=== PATIENT | male | born 1970 | race Caucasian/White ===

== ENCOUNTER 2017-07-03 14:55 | Emergency (ER) | payer MEDICARE ==
--- NOTE | 2017-07-03 16:04 | ULT ---
VENOUS DUPLEX SONOGRAM OF RIGHT LOWER EXTREMITY: 07/03/17 HISTORY: Right leg pain and edema. FINDINGS: The right common femoral vein and greater saphenous junction were evaluated along with the femoral, d eep femoral, popliteal, and posterior tibial vein. There is color and spectral doppler flow, compress ion, and augmentation. IMPRESSION: No sonographic evidence of DVT within the right lower extremity. POS: [facility]
[2017-07-03] MEDS ORDERED: Morphine 4 MG/ML VIAL ONE (21:11)
== END 2017-07-03 22:16 ==
LOC: ERS 14:55
DX: S92.001A Unspecified fracture of right calcaneus, initial encounter for closed fracture (principal); E78.5 Hyperlipidemia, unspecified; I10 Essential (primary) hypertension; G40.909 Epilepsy, unspecified, not intractable, without status epilepticus; F17.210 Nicotine dependence, cigarettes, uncomplicated; Z71.6 Tobacco abuse counseling; W13.2XXA Fall from, out of or through roof, initial encounter
CPT/HCPCS: 29515; 96374; 99406; J2270

== ENCOUNTER 2017-11-29 04:41 | Inpatient (IN) | payer MEDICARE ==
[2017-11-29 05:53] LABS: Hemoglobin 15.8 g/dL (14.0-18.0); Mean Corpuscular Hemoglobin 31.6 pg (27.0-31.0); Mean Corpuscular Volume 90.5 fL (78.0-98.0)
[2017-11-29 06:03] LABS: Acetaminophen Less than 6.0 mcg/mL (10.0-30.0); Alcohol Less than 10 mg/dL (Less than 10); Salicylate Less than 8.0 mg/dL (15.0-30.0)
[2017-11-29 06:13] LABS: ALT (SGPT) 12 U/L (8-55); AST (SGOT) 22 U/L (5-34); Albumin 4.5 g/dL (3.5-5.0); Alcohol Less than 10 mg/dL (Less than 10); Alkaline Phosphatase 77 U/L (40-150); Anion Gap 20 mmol/L (10-20); BUN (Urea Nitrogen) 51 mg/dL (8.9-20.6); Bilirubin, Total 1.2 mg/dL (0.2-1.2); Calc. Creatinine Clearance 0 mL/min (70-130); Calcium 9.8 mg/dL (7.8-10.44); Carbon Dioxide 22 mmol/L (22-29); Chloride 95 mmol/L (98-107); Estimated GFR-MDRD 35; Globulin 3.6 g/dL (2.4-3.5); Glucose 91 mg/dL (70-105); Potassium 3.8 mmol/L (3.5-5.1); Protein, Total 8.1 g/dL (6.0-8.3); Sodium 133 mmol/L (136-145)
[2017-11-29 06:38] LABS: Band 3 % (5-11); Lymphocytes 9 % (21-51); MDiff Complete? YES; Mean Platelet Volume 7.8 fL (7.4-10.4); Monocytes 7 % (0-10); Neutrophil 81 % (42-75); PLT Morphology Comment Appears Decreased; Platelet Count 99 thou/uL (130-400)
--- NOTE | 2017-11-29 06:51 | PDOC.FPRHP ---
- History of Present Illness Chief Complaint: Unobtainable/pt did not report any complaints History of Present Illness: Mr. Rodriguez is a 47YO male with a PMH significant for a seizure disorder who was brought into the ED after being found wondering around outside [employer]. The patient was acutely psychotic on exam referring to people who were not in the room and not answering the majority of our questions appropriately. He was easily distracted and not easy to redirect. He could not recall how he got to the ED but did recognize that he was "in a hospital setting " in [place], [place]. He also endorsed having a seizure disorder but could not recall what medications he takes for it. However, he stated that he did take his medications today. The patient reported living alone in an apartment complex in [place]. Other than these facts, no other relevant or useful history was obtained. ED Course: Patient was given 1L NS in the ED and haldol. - Allergies/Adverse Reactions Allergies Allergy/AdvReac Type Severity Reaction Status Date / Time Penicillins Allergy Verified 11/29/17 08:10 - Home Medications Medication Instructions Recorded Confirmed Type Aspirin [Aspirin Chewable] 81 mg PO DAILY 11/29/17 11/29/17 History Divalproex Sodium [Depakote ER] 1,000 mg PO BID 11/29/17 11/29/17 History Donepezil HCl [Aricept] 5 mg PO DAILY 11/29/17 11/29/17 History Gabapentin 600 mg PO HS 11/29/17 11/29/17 History Metoprolol Tartrate 25 mg PO DAILY 11/29/17 11/29/17 History PARoxetine HCl [Paxil] 30 mg PO BID 11/29/17 11/29/17 History levETIRAcetam [Keppra] 1,500 mg PO BID 11/29/17 11/29/17 History - History History unobtainable as patient was acutely psychotic and unable to answer questions appropriately. PMHx: PSHx: FHx: Social: - Review of Systems ROS unobtainable: due to mental status - Vital signs BP: 148/98 HR: 71 RR: 16 Tmax: 97.5F Pox: 98% on RA Wt: 86.18kg - Physical Exam Constitutional: NAD, other (Oriented to person and place.) HEENT: normocephalic and atraumatic, EOMI, conjunctiva clear, grossly normal vision, grossly normal hearing, other (Fixed, constricted pupils B/L. Poor dentition.) Neck: supple, FROM Heart: RRR, normal S1/S2, no murmurs/rubs/gallops Lungs: CTAB, no respiratory distress, good air movement, no rales/rhonchi, no wheezing Abdomen: soft, non-tender, bowel sounds present Musculoskeletal: normal structure, ROM grossly normal Neurological: no focal deficit, CN II-XII intact, normal sensation Skin: no jaundice Heme/Lymphatic: no unusual bruising or bleeding Psychiatric: other (Poor recent and remote memory, easily distracted and difficult ot redirect.) -Psychiatric: Acute psychosis with visual hallucinations. FMR H&P: Results - Labs Result Diagrams: 11/29/17 05:39 11/30/17 04:06 Lab results: WBC 5.0 thou/uL (4.8-10.8) 11/29/17 05:39 Hgb 15.8 g/dL (14.0-18.0) 11/29/17 05:39 Hct 45.2 % (42.0-52.0) 11/29/17 05:39 MCV 90.5 fL (78.0-98.0) 11/29/17 05:39 Plt Count 99 thou/uL (130-400) L 11/29/17 05:39 Band Neuts % (Manual) 3 % (5-11) L 11/29/17 05:39 Sodium 133 mmol/L (136-145) L 11/29/17 05:39 Potassium 3.8 mmol/L (3.5-5.1) 11/29/17 05:39 Chloride 95 mmol/L (98-107) L 11/29/17 05:39 Carbon Dioxide 22 mmol/L (22-29) 11/29/17 05:39 BUN 51 mg/dL (8.9-20.6) H 11/29/17 05:39 Creatinine 2.04 mg/dL (0.6-1.3) H 11/29/17 05:39 Glucose 91 mg/dL (70-105) 11/29/17 05:39 Calcium 9.8 mg/dL (7.8-10.44) 11/29/17 05:39 Total Bilirubin 1.2 mg/dL (0.2-1.2) 11/29/17 05:39 AST 22 U/L (5-34) 11/29/17 05:39 ALT 12 U/L (8-55) 11/29/17 05:39 Alkaline Phosphatase 77 U/L (40-150) 11/29/17 05:39 Ammonia 32 umol/L (18-72) 11/29/17 05:38 Creatine Kinase 166 U/L (30-200) 11/29/17 05:39 Serum Total Protein 8.1 g/dL (6.0-8.3) 11/29/17 05:39 Albumin 4.5 g/dL (3.5-5.0) 11/29/17 05:39 FMR H&P: A/P - Problem List (1) Acute psychosis Current Visit: Yes Status: Acute Code(s): F23 - BRIEF PSYCHOTIC DISORDER (2) Injury of foot, superficial Current Visit: Yes Status: Acute Code(s): S90.929A - UNSP SUPERFICIAL INJURY OF UNSPECIFIED FOOT, INIT ENCNTR (3) KOURTNEY (acute kidney injury) Current Visit: Yes Status: Acute Code(s): N17.9 - ACUTE KIDNEY FAILURE, UNSPECIFIED (4) Epilepsy Current Visit: Yes Status: Chronic Code(s): G40.909 - EPILEPSY, UNSP, NOT INTRACTABLE, WITHOUT STATUS EPILEPTICUS (5) HTN (hypertension) Current Visit: Yes Status: Chronic Code(s): I10 - ESSENTIAL (PRIMARY) HYPERTENSION (6) HLD (hyperlipidemia) Current Visit: Yes Status: Chronic Code(s): E78.5 - HYPERLIPIDEMIA, UNSPECIFIED (7) Neuropathy Current Visit: Yes Status: Chronic Code(s): G62.9 - POLYNEUROPATHY, UNSPECIFIED - Plan 38YOM with a PMH of epilepsy, HTN, HLD, and neuropathy who was brought to the ED after being found walking around [employer]. 1. Acute psychosis: - Uncertain etiology at this point. Per chart review, patient has no previous psychiatric history. Could be 2/2 substance abuse, metabolic derangements, infection, EtOH withdrawal, or a new onset psychiatric disorder. - WBC WNL and afebrile on admission. However, wounds on foot could be a possible source for infection. x-rays pending to r/o any acute fracture or deep tissue/bone infection. UA pending. - UDS and serum drug screen pending. - CMP significant for uremia and severe KOURTNEY which could be contributing to psychosis. Will continue to monitor. - Per chart review has h/o alcoholism. Will continue to monitor vitals for signs of DTs. Alhaji protocol in place. - Given Haldol in the ED. Will order haldol PRN for the floor for agitation. 2. KOURTNEY: - Bun/Cr 50/2.04 on admission. - Likely pre-renal in origin. Started on a 1L bolus of NS in the ED. Will continue IVFs on the floor. - Will get a urine Na & Cr as well as a renal U/S to r/o any intrinsic renal process. - Will continue to follow with QD BMPs. 3. Superficial left foot wounds: - Likely 2/2 trench foot from poor foot hygiene and ill-fitting shoes. Appear to be blisters that have peeled. - No major concern for cellulitis as erythema is B/L and patient denies any pain on exam. Also, patient is afebrile and WBC is WNL. Will order an ESR. CK is pending. - X-ray of L foot pending to r/o deep tissue or bone involvement as well as any acute fracture that needs to be addressed. - Wound care consult ordered. - Will hold off on antibiotics for now. 4. h/o epilepsy: - Will check home medication blood levels to ensure compliance. - Will resume home medications. 5. HTN: - Will resume home medications. 6. HLD: - Aware. Will resume home medications. FMR H&P: Upper Level - Pertinent findings Vitals: Vitals: BP: 143/100 P: 72 RR: 16 SPO2: 93% on RA wt: 86.18 kg General: Alert and oriented x 1; pt actively reporting visual hallucinations. Extremities: bilateral gernalized erythema of feet without distinct borders; left foot with superficial erosions of plantar aspect forefoot and dorsal aspect of distal first and second digits; superfcial erosion of medial aspect of left foot dusky discoloration of proximal foot. 2+ pulses. - Plan Date/Time: 11/29/17 3297 IMarie, have evaluated this patient and agree with findings/plan as outlined by [employer] internship resident. Pertinent changes/additions are listed here. Maciel Rodriguez is a 47 year old male who presents to the ED for evaluation of acute psychosis. Pt is actively psychotic. History obtained from ED chart. Pt was found wandering around [employer] and was brought in to ED for evaluation. Acute Psychosis - differentials include: acute drug intoxication, psychiatric history, uremia, infection, withdrawal. - cbc wnl. Will obtain UA/Urine cx. - MHMR when medically stable. - prns for agitation - ASE protocol - Sitter Acute Kidney Injury - BUN: CR > 20; likely pre-renal - UA, Urine Na, Urine Cr - Renal US Superficial erosions of feet - will order bilateral feet x-ray - ESR -consider IV antibiotics - Antibiotics. History of alcohol abuse - ASE protocol. Seizure disorder - per chart review, pt was previously on Keppra, Depakote and Onfi - seizure precautions. - will order depakote and keppra levels. Attending Addendum - Attending Addendum Date/Time: 11/30/17 1583 I personally evaluated the patient and discussed the management with Dr. Laughlin on 11/29/17. I agree with the History, Examination, Assessment and Plan documented above with any addition or exceptions noted below.
[2017-11-29] MEDS ORDERED: Haloperidol Lactate 5 MG/ML VIAL ONE (07:19)
--- NOTE | 2017-11-29 07:45 | CT ---
CT BRAIN WITHOUT CONTRAST: HISTORY: Altered mental status. 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 Ther e are changes of chronic small-vessel ischemic disease in the periventricular white matter. The vent ricular size is appropriate and the basilar cisterns patent. No evidence of acute infarct, hemorrhag e, midline shift, or abnormal extraaxial fluid collections is seen. The bony calvarium is intact. T here is mucosal disease in the paranasal sinuses. IMPRESSION: No CT evidence of acute intracranial process. POS: [facility]
[2017-11-29] MEDS ORDERED: Ondansetron HCl/PF 4 MG/2 ML Vial IVP PRN (08:14)
[2017-11-29] MEDS ORDERED: Acetaminophen 325 MG TAB PO PRN (08:14)
[2017-11-29] MEDS ORDERED: Ondansetron ODT 4 MG TAB SL PRN (08:14)
[2017-11-29 08:17] VITALS: BMI 21.3
--- NOTE | 2017-11-29 08:57 | RAD ---
LEFT FOOT 3 VIEWS: HISTORY: Foot infection. FINDINGS: Tarsals are unremarkable. Metatarsals and phalanges are intact. Mild degenerative change at the 1st MTP joint. There is no evidence of focal lysis or destruction. No plain film evidence of osteomyel itis identified. POS: [facility]
--- NOTE | 2017-11-29 09:07 | ULT ---
RENAL ULTRASOUND: HISTORY: Acute kidney insufficiency. FINDINGS: The right kidney measures 10.5 cm and the left kidney measures 11.5 cm. No hydronephrosis. Cortical echogenicity appears preserved. Bladder is mildly distended and appears unremarkable. IMPRESSION: Unremarkable renal ultrasound. POS: [facility]
[2017-11-29] MEDS: Heparin 5,000 UNITS/ML VIAL SC SCH ×2 (09:33→15:34)
--- NOTE | 2017-11-29 10:56 | PDOC.EVN ---
Event Note - Event Note Event Note: spoke to mother sneha, she and father are >83 and cannot care for him any longer, they are at the end of their rope they have tried going through [facility] and were told he did not qualify They tried [facility] and did not get any help They had hired a caregiver at home who now quit They have not heard from him in a week History of alcoholism They are burned out and not planning to come visit they want help finding a fpc for him as they cannot care for him anymore
[2017-11-29] MEDS ORDERED: LEVETIRACETAM 1500 MG PO SCH ×2 (11:00→21:00)
[2017-11-29] MEDS ORDERED: levETIRAcetam 500 MG TAB PO SCH (12:30)
[2017-11-29] MEDS: Lactated Ringer's 1,000 ML IV SCH (16:00)
[2017-11-29 17:47] LABS: Bilirubin Moderate (Negative); Blood, Urine Negative (Negative); Clarity CLEAR (Clear); Glucose, Urine (Dipstick) Negative (Negative); Leukocyte Negative (Negative); Nitrite Negative (Negative); Protein, Urine (Dipstick) Trace mg/dL (Neg-Trace); Specific Gravity, Urine 1.026 (1.002-1.036)
[2017-11-29 17:50] LABS: Bacteria/HPF None Seen HPF (None Seen); Hyaline Casts/LPF 4-6 HYALINE CAST LPF (0-3 Hyaline); RBC/HPF 0-3 HPF (0-3); Squamous Epithelial 0-3 HPF (0-3); WBC/HPF 0-3 HPF (0-3)
[2017-11-29 17:56] LABS: Creatinine, Urine 225.2 mg/dL (63-166)
[2017-11-29 17:57] LABS: Benzodiazepine Screen Detected (NotDetected); Medtox Reader # READER 4; Phencyclidine (PCP) Not Detected (NotDetected); THC/Cannabinoid Screen Detected (NotDetected)
[2017-11-29 17:58] LABS: Amphetamine Not Detected (NotDetected); Barbiturates Screen Not Detected (NotDetected); Cocaine Metabolite Screen Not Detected (NotDetected); Medtox Control Line Valid? VALID (VALID); Methadone Not Detected (NotDetected); Methamphetamine Not Detected (NotDetected); Opiate Screen Not Detected (NotDetected); Oxycodone Screen Not Detected (NotDetected); Tricyclic Screen Not Detected (NotDetected)
[2017-11-29] MEDS ORDERED: Diazepam 5 MG TAB PO PRN (18:18)
[2017-11-29] MEDS ORDERED: Thiamine HCl 200 MG/2 ML VIAL IM SCH (18:30)
[2017-11-29] MEDS ORDERED: Diazepam 5 MG TAB PO SCH (18:30)
[2017-11-29 18:50] LABS: HIV (1/2) Antibody/Antigen Non-Reactive (NonReactive); HIV 1/2 INDEX 0.08 S/CO (<1.00); Hep C IgG Ab Non-Reactive (NonReactive); Hep C Index 0.06 S/CO (0-0.79)
[2017-11-29 18:54] LABS: Syphilis Antibody Nonreactive (Nonreactive); Syphilis Antibody Index 0.05 S/CO (<1.00 Non-Reactive)
[2017-11-29 20:38] LABS: Anion Gap 15 mmol/L (10-20); BUN (Urea Nitrogen) 43 mg/dL (8.9-20.6); Calc. Creatinine Clearance 87 mL/min (70-130); Calcium 9.3 mg/dL (7.8-10.44); Carbon Dioxide 24 mmol/L (22-29); Chloride 100 mmol/L (98-107); Estimated GFR-MDRD 65; Glucose 106 mg/dL (70-105); Potassium 3.4 mmol/L (3.5-5.1); Sodium 136 mmol/L (136-145)
[2017-11-29] MEDS: levETIRAcetam 500 MG TAB PO SCH (21:13)
[2017-11-29] MEDS: Gabapentin 300 MG CAP PO SCH (21:13)
[2017-11-30] MEDS: Lactated Ringer's 1,000 ML IV SCH ×3 (00:40→15:32)
[2017-11-30] MEDS ORDERED: Diazepam 5 MG TAB PO PRN (04:00)
[2017-11-30 05:37] LABS: Anion Gap 13 mmol/L (10-20); BUN (Urea Nitrogen) 36 mg/dL (8.9-20.6); Calc. Creatinine Clearance 96 mL/min (70-130); Calcium 9.7 mg/dL (7.8-10.44); Carbon Dioxide 28 mmol/L (22-29); Chloride 101 mmol/L (98-107); Estimated GFR-MDRD 73; Glucose 91 mg/dL (70-105); Potassium 3.5 mmol/L (3.5-5.1); Sodium 138 mmol/L (136-145)
--- NOTE | 2017-11-30 05:52 | PDOC.FM ---
Addendum entered and electronically signed by Lea Moy MD 11/30/17 16:22 : Per Nutrition - made diet Heart Healthy and added Suplena BID between meals. Discharge pending [facility] placement. Original Note: - Subjective Subjective: This is a 47yo M here for acute psychosis. On exam this morning, the patient is AXO X 3, but is tangential during our discussion. He responds inappropriately to questions asked. He denies any pain. States he has "scrapes and bruises" but no pain. He is currently not having any visual or auditory hallucinations. He denies SI. He denies SOB, chest pain, abdominal pain, fever, NVD. - Objective Vital Signs & Weight: Vital Signs (12 hours) Temp Pulse Resp BP BP Pulse Ox 11/30/17 04:00 97.5 F L 73 18 118/78 93 L 11/30/17 00:09 122/78 11/30/17 00:00 98.1 F 74 18 122/78 96 11/29/17 20:00 97.5 F L 70 18 150/89 H 97 11/29/17 19:02 97.5 F L 70 18 150/89 H 97 Weight Weight 81.647 kg I&O: 11/28/17 11/29/17 11/30/17 06:59 06:59 06:59 Intake Total 615 Balance 615 Result Diagrams: 11/29/17 05:39 11/30/17 04:06 <Lea Moy - Last Filed: 11/30/17 13:00> - Objective Vital Signs & Weight: Vital Signs (12 hours) Temp Pulse Resp BP BP BP Pulse Ox 11/30/17 16:00 98.0 F 83 18 120/71 96 11/30/17 12:00 132/78 11/30/17 11:32 97.8 F 83 20 132/78 96 11/30/17 08:00 97.6 F 83 18 136/88 136/88 96 Weight Admit Weight 81.647 kg Weight 81.647 kg I&O: 11/29/17 11/30/17 12/01/17 06:59 06:59 06:59 Intake Total 2358 Balance 2358 Result Diagrams: 11/29/17 05:39 11/30/17 04:06 <Lily Cramer - Last Filed: 11/30/17 16:44> Phys Exam - Physical Examination Constitutional: NAD patient resting comfortably in bed HEENT: moist MMs, sclera anicteric Neck: supple, full ROM Respiratory: no wheezing, no rales, no rhonchi, clear to auscultation bilateral Cardiovascular: RRR, no significant murmur Gastrointestinal: soft, non-tender, positive bowel sounds Musculoskeletal: no edema, pulses present medial malleolus blister; erythemtaous, no drainage Neurological: normal sensation, moves all 4 limbs Psychiatric: normal affect, A&O x 3 Deviation from normal: Poor recent and remote memory, easily distracted and tangential Skin: no rash, normal turgor <Lea Moy - Last Filed: 11/30/17 13:00> Dx/Plan (1) KOURTNEY (acute kidney injury) Code(s): N17.9 - ACUTE KIDNEY FAILURE, UNSPECIFIED Status: Acute (2) Acute psychosis Code(s): F23 - BRIEF PSYCHOTIC DISORDER Status: Acute (3) Injury of foot, superficial Code(s): S90.929A - UNSP SUPERFICIAL INJURY OF UNSPECIFIED FOOT, INIT ENCNTR Status: Acute (4) Epilepsy Code(s): G40.909 - EPILEPSY, UNSP, NOT INTRACTABLE, WITHOUT STATUS EPILEPTICUS Status: Chronic (5) HLD (hyperlipidemia) Code(s): E78.5 - HYPERLIPIDEMIA, UNSPECIFIED Status: Chronic (6) HTN (hypertension) Code(s): I10 - ESSENTIAL (PRIMARY) HYPERTENSION Status: Chronic - Plan Plan: 38YOM with a PMH of epilepsy, HTN, HLD, and neuropathy who was brought to the ED after being found walking around [employer]. Acute psychosis: - Uncertain etiology at this point. Per chart review, patient has no previous psychiatric history. Could be 2/2 substance abuse, metabolic derangements, infection, EtOH withdrawal, or a new onset psychiatric disorder. - WBC WNL and afebrile on admission. However, wounds on foot could be a possible source for infection. x-rays pending to r/o any acute fracture or deep tissue/bone infection. UA pending. - UDS positive for benzos and cannabinoids - CMP significant for uremia and severe KOURTNEY which could be contributing to psychosis. Will continue to monitor. - Per chart review has h/o alcoholism. Will continue to monitor vitals for signs of DTs. Alhaji protocol in place. - Given Haldol in the ED. Will order haldol PRN for the floor for agitation. - Case management consulted for placement at [facility] KOURTNEY: - Bun/Cr 50/2.04 on admission. Today improved to 36/1.07 - Likely pre-renal in origin. Started on a 1L bolus of NS in the ED. Will continue IVFs on the floor.\\ - Any intrinsic renal process r/o - Will continue to follow with QD BMPs Superficial left foot wounds: - Likely 2/2 trench foot from poor foot hygiene and ill-fitting shoes. Appear to be blisters that have peeled. - No major concern for cellulitis as erythema is B/L and patient denies any pain on exam. Also, patient is afebrile and WBC is WNL. Will order an ESR. CK is pending. - X-ray of L foot pending to r/o deep tissue or bone involvement as well as any acute fracture that needs to be addressed. - Wound care following - Will hold off on antibiotics for now H/o epilepsy: - Will check home medication blood levels to ensure compliance - Will resume home medications HTN: - Will resume home medications HLD: - Will resume home medications DISPO: likely discharge today or tomorrow pending [facility] placement CODE: FULL Case discussed with Dr. Cramer <Lea Moy - Last Filed: 11/30/17 13:00> Attending Addendum - Attending Addendum Date/Time: 11/30/17 [id number] I personally evaluated the patient and discussed the management with Dr. Moy. I agree with the History, Examination, Assessment and Plan documented above with any addition or exceptions noted below. The patient is medically stable. Will consult [facility] with psych issues and discuss options with case management. <Lily Cramer - Last Filed: 11/30/17 16:44>
[2017-11-30] MEDS: levETIRAcetam 500 MG TAB PO SCH ×2 (09:19→21:29)
[2017-11-30] MEDS: Metoprolol Tartrate 25 MG TAB PO SCH (09:19)
[2017-11-30] MEDS: PARoxetine 20 MG TAB PO SCH ×2 (09:19→21:29)
[2017-11-30] MEDS: Multivitamin W/ Minerals 1 TAB PO SCH (09:19)
[2017-11-30] MEDS: Donepezil HCl 5 MG TAB PO SCH (09:20)
[2017-11-30] MEDS: Magnesium Oxide 400 MG TAB PO SCH (09:20)
[2017-11-30] MEDS: Folic Acid 1 MG TAB PO SCH (09:20)
[2017-11-30] MEDS: Acetaminophen 325 MG TAB PO PRN (18:44)
[2017-11-30] MEDS: Gabapentin 300 MG CAP PO SCH (21:28)
[2017-12-01] MEDS: Lactated Ringer's 1,000 ML IV SCH ×4 (00:17→23:41)
[2017-12-01] MEDS: Acetaminophen 325 MG TAB PO PRN ×2 (02:17→19:57)
[2017-12-01 04:53] LABS: Anion Gap 8 mmol/L (10-20); BUN (Urea Nitrogen) 18 mg/dL (8.9-20.6); Calc. Creatinine Clearance 126 mL/min (70-130); Calcium 8.9 mg/dL (7.8-10.44); Carbon Dioxide 29 mmol/L (22-29); Chloride 101 mmol/L (98-107); Estimated GFR-MDRD Greater than 90; Glucose 119 mg/dL (70-105); Potassium 3.4 mmol/L (3.5-5.1); Sodium 135 mmol/L (136-145)
--- NOTE | 2017-12-01 06:06 | PDOC.FM ---
- Subjective Subjective: This is a 47 yo M here for acute psychosis, now improving with no active hallucinations or SI. On exam today, the patient has no concerns or complaints. States he is "better than ever." He is resting comfortably in bed. Pt states he is ready to go home and see his dog. Patient was evaluated by [facility] and denied as he was not a risk. He denies any chest pain, SOB, abdominal pain, NVD. - Objective Vital Signs & Weight: Vital Signs (12 hours) Temp Pulse Resp BP BP Pulse Ox 12/01/17 05:33 97.9 F 83 20 132/84 96 12/01/17 01:38 97.9 F 72 20 129/83 96 12/01/17 00:00 135/75 11/30/17 20:00 97.9 F 72 20 132/75 96 11/30/17 19:47 97.9 F 72 20 132/75 96 Weight Admit Weight 81.647 kg Weight 81.647 kg I&O: 11/29/17 11/30/17 12/01/17 06:59 06:59 06:59 Intake Total 2358 1979 Balance 235 1980 Result Diagrams: 11/29/17 05:39 12/01/17 04:04 <Lea Moy - Last Filed: 12/01/17 11:02> - Objective Vital Signs & Weight: Vital Signs (12 hours) Temp Pulse Resp BP BP BP Pulse Ox 12/01/17 12:37 98.1 F 72 16 137/85 97 12/01/17 12:00 137/85 12/01/17 08:00 116/72 12/01/17 07:58 97.3 F L 74 18 116/72 98 12/01/17 07:54 97.3 F L 74 18 98 12/01/17 05:33 97.9 F 83 20 132/84 96 12/01/17 01:38 97.9 F 72 20 129/83 96 Weight Admit Weight 81.647 kg Weight 81.647 kg I&O: 11/30/17 12/01/17 12/02/17 06:59 06:59 06:59 Intake Total 2358 3290 Balance 2358 3290 Result Diagrams: 11/29/17 05:39 12/01/17 04:04 <Lily Cramer - Last Filed: 12/01/17 12:56> Phys Exam - Physical Examination Constitutional: NAD resting comfortably, poorly groomed HEENT: PERRLA, moist MMs Neck: supple, full ROM Respiratory: no wheezing, no rales, no rhonchi, clear to auscultation bilateral Cardiovascular: RRR, no significant murmur, no rub Gastrointestinal: soft, non-tender, no distention, positive bowel sounds Musculoskeletal: no edema, pulses present Blisters on right foot, blister on medial malleolus of left foot Neurological: non-focal, moves all 4 limbs Psychiatric: A&O x 3 Deviation from normal: A&OX 2; tangential speech; answers questions inappropriately Skin: no rash, normal turgor Deviation from normal: superficial abrasion above right eye; abrasion along nose <Lea Moy - Last Filed: 12/01/17 11:02> Dx/Plan (1) KOURTNEY (acute kidney injury) Code(s): N17.9 - ACUTE KIDNEY FAILURE, UNSPECIFIED Status: Acute (2) Acute psychosis Code(s): F23 - BRIEF PSYCHOTIC DISORDER Status: Acute (3) Injury of foot, superficial Code(s): S90.929A - UNSP SUPERFICIAL INJURY OF UNSPECIFIED FOOT, INIT ENCNTR Status: Acute (4) Epilepsy Code(s): G40.909 - EPILEPSY, UNSP, NOT INTRACTABLE, WITHOUT STATUS EPILEPTICUS Status: Chronic (5) HLD (hyperlipidemia) Code(s): E78.5 - HYPERLIPIDEMIA, UNSPECIFIED Status: Chronic (6) HTN (hypertension) Code(s): I10 - ESSENTIAL (PRIMARY) HYPERTENSION Status: Chronic - Plan Plan: Plan: 38YOM with a PMH of epilepsy who was brought to the ED after being found walking around [employer] and dx with acute psychosis, now improved. Acute psychosis: - Etiology remains unclear. Per chart review, patient has no previous psychiatric history. Could be 2/2 substance abuse, metabolic derangements, infection, EtOH withdrawal, or a new onset psychiatric disorder. - WBC WNL and afebrile on admission. - UDS positive for benzos and cannabinoids - CMP significant for uremia and severe KOURTNEY which could be contributing to psychosis, now resolved. Will continue to monitor. - Per chart review has h/o alcoholism. Will continue to monitor vitals for signs of DTs. ASE protocol in place. - Given Haldol in the ED. Will order haldol PRN for the floor for agitation. - Case management consulted: pt denied MHMR; will try to contact friend to help him when he goes home KOURTNEY: - Bun/Cr 50/2.04 on admission. Today resolved to 13/0.82 - Likely pre-renal in origin. Started on a 1L bolus of NS in the ED. Will continue IVFs on the floor.\\ - Any intrinsic renal process r/o - Will continue to follow with QD BMPs Superficial left foot wounds: - Likely 2/2 trench foot from poor foot hygiene and ill-fitting shoes. Appear to be blisters that have peeled. - No major concern for cellulitis as erythema is B/L and patient denies any pain on exam. Also, patient remains afebrile and WBC is WNL. ESR 2. - X-ray of L foot pending to r/o deep tissue or bone involvement as well as any acute fracture that needs to be addressed. - Wound care to change out dressing today; appreciate their help - No abx needed at this time H/o epilepsy: - Will check home medication blood levels to ensure compliance - Will resume home medications HTN: - Will resume home medications HLD: - Will resume home medications DISPO: Discharge home today CODE: FULL Case discussed with Dr. Cramer <Lea Moy - Last Filed: 12/01/17 11:02> Attending Addendum - Attending Addendum Date/Time: 12/01/17 1046 I personally evaluated the patient and discussed the management with Dr. Moy. I agree with the History, Examination, Assessment and Plan documented above with any addition or exceptions noted below. [facility] declined the patient and he will be discharged. <Lily Cramer - Last Filed: 12/01/17 12:56>
[2017-12-01] MEDS: Folic Acid 1 MG TAB PO SCH (07:53)
[2017-12-01] MEDS: PARoxetine 20 MG TAB PO SCH ×2 (07:53→19:56)
[2017-12-01] MEDS: levETIRAcetam 500 MG TAB PO SCH ×2 (07:54→19:55)
[2017-12-01] MEDS: Magnesium Oxide 400 MG TAB PO SCH (07:54)
[2017-12-01] MEDS: Metoprolol Tartrate 25 MG TAB PO SCH (07:54)
[2017-12-01] MEDS: Donepezil HCl 5 MG TAB PO SCH (07:54)
[2017-12-01] MEDS: Multivitamin W/ Minerals 1 TAB PO SCH (07:54)
[2017-12-01] MEDS: Gabapentin 300 MG CAP PO SCH (19:55)
[2017-12-01] MEDS: Haloperidol Lactate 5 MG/ML VIAL IM PRN (19:57)
[2017-12-02 05:46] LABS: #Eosinphils 0.1 thou/uL (0.0-0.7); #Monocytes 0.7 thou/uL (0.11-0.59); #Neutrophils 2.9 thou/uL (1.40-6.50); %Basophils 0.7 % (0.0-1.0); %Eosinophils 2.3 % (0.0-10.0); %Lymphocytes 22.1 % (21.0-51.0); %Neutrophils 60.9 % (42.0-75.0); Hemoglobin 12.6 g/dL (14.0-18.0); Mean Corpuscular HGB CONC 33.6 g/dL (32.0-36.0); Mean Corpuscular Hemoglobin 31.2 pg (27.0-31.0); Mean Corpuscular Volume 92.7 fL (78.0-98.0); Mean Platelet Volume 8.8 fL (7.4-10.4); Platelet Count 70 thou/uL (130-400); RBC Distribution Width 12.6 % (11.5-14.5); Red Blood Cell (RBC) Count 4.06 mill/uL (4.70-6.10); White Blood Cell (WBC) Count 4.7 thou/uL (4.8-10.8)
[2017-12-02 05:54] LABS: Anion Gap 12 mmol/L (10-20); BUN (Urea Nitrogen) 10 mg/dL (8.9-20.6); Calc. Creatinine Clearance 127 mL/min (70-130); Calcium 9.7 mg/dL (7.8-10.44); Carbon Dioxide 28 mmol/L (22-29); Chloride 100 mmol/L (98-107); Estimated GFR-MDRD Greater than 90; Glucose 83 mg/dL (70-105); Potassium 3.8 mmol/L (3.5-5.1); Sodium 136 mmol/L (136-145)
--- NOTE | 2017-12-02 06:08 | PDOC.FM ---
- Subjective Subjective: 47 yo M who presented with acute psychosis now improved. Patient was set to be discharged yesterday, but was found to be disoriented and did not know his address. Family nor friends were able to be contacted and he was therefore kept in the hospital. Case management has been contacted and is helping to find placement for the patient. APS has also been contacted to see if they have any insight into the patient's information. The patient has no concerns or complaints this morning. He states he wishes to go home. He was able to tell me his name, birthdate, but was unable to recall the city he was in and gave an incorrect home address. Yesterday, he stated he was looking forward to going home to his dog and today he told me that his dog had passed, but per the nurse the parents picked up the dog from his apartment yesterday. He is still having odd responses to questions and is tangential in his speech. Uncertain as to what his typical baseline mentation is. Patient's mother came to the hospital today and we were able to discuss patient's hx. She provided documentation from previous APS and psychiatry reports. She states she is unable to care for him, but is aware that he is unable to care for himself. She states he has no family that is able to take care of him and understands that guardianship may need to be sought. He denies SOB, chest pain, NVD, or abdominal pain. - Objective MAR Reviewed: Yes Vital Signs & Weight: Vital Signs (12 hours) Temp Pulse Resp BP BP Pulse Ox 12/02/17 04:00 98.1 F 76 20 157/90 H 96 12/02/17 00:00 98.2 F 60 20 151/88 H 99 12/01/17 20:00 98.1 F 63 20 133/75 96 12/01/17 19:59 133/75 Weight Admit Weight 81.647 kg Weight 81.647 kg I&O: 11/30/17 12/01/17 12/02/17 06:59 06:59 06:59 Intake Total 2358 3290 3510 Output Total 1800 Balance 2358 3290 1710 Result Diagrams: 12/02/17 04:05 12/02/17 04:05 <Lea Moy - Last Filed: 12/02/17 11:49> - Objective Vital Signs & Weight: Vital Signs (12 hours) Temp Pulse Resp BP Pulse Ox 12/02/17 16:39 97.8 F 50 L 16 144/87 H 96 12/02/17 11:45 98.2 F 64 16 136/85 98 12/02/17 08:00 98.1 F 64 18 97 12/02/17 07:47 98.1 F 64 18 130/80 98 Weight Admit Weight 81.647 kg Weight 81.647 kg I&O: 12/01/17 12/02/17 12/03/17 06:59 06:59 06:59 Intake Total 3290 3510 480 Output Total 1800 Balance 3290 1710 480 Result Diagrams: 12/02/17 04:05 12/02/17 04:05 <Lily Cramer - Last Filed: 12/02/17 17:15> Phys Exam - Physical Examination Constitutional: NAD poorly groomed, in no acute distress HEENT: PERRLA, moist MMs Neck: no JVD, supple, full ROM Respiratory: no wheezing, no rales, no rhonchi, clear to auscultation bilateral Cardiovascular: RRR, no significant murmur, no rub Gastrointestinal: soft, non-tender, no distention, positive bowel sounds Musculoskeletal: pulses present Neurological: moves all 4 limbs Deviation from normal: A&OX2; responds to questions in tangential manner yesterday said he had a dog and today he said he did not Deviation from normal: ulcer on medial malleolus of right foot, ulcer on left foot -: mild serous drainage from both sites <Lea Moy - Last Filed: 12/02/17 11:49> Dx/Plan (1) KOURTNEY (acute kidney injury) Code(s): N17.9 - ACUTE KIDNEY FAILURE, UNSPECIFIED Status: Acute (2) Acute psychosis Code(s): F23 - BRIEF PSYCHOTIC DISORDER Status: Acute (3) Injury of foot, superficial Code(s): S90.929A - UNSP SUPERFICIAL INJURY OF UNSPECIFIED FOOT, INIT ENCNTR Status: Acute (4) Epilepsy Code(s): G40.909 - EPILEPSY, UNSP, NOT INTRACTABLE, WITHOUT STATUS EPILEPTICUS Status: Chronic (5) HLD (hyperlipidemia) Code(s): E78.5 - HYPERLIPIDEMIA, UNSPECIFIED Status: Chronic (6) HTN (hypertension) Code(s): I10 - ESSENTIAL (PRIMARY) HYPERTENSION Status: Chronic (7) Thrombocytopenia Code(s): D69.6 - THROMBOCYTOPENIA, UNSPECIFIED Status: Acute - Plan Plan: 47YOM with a PMH of epilepsy who was brought to the ED after being found walking around [employer] and dx with acute psychosis, now improved. Acute psychosis: - Etiology remains unclear. Per chart review, patient has no previous psychiatric history. Could be 2/2 substance abuse, metabolic derangements, infection, EtOH withdrawal, or a new onset psychiatric disorder. - WBC WNL and afebrile on admission - UDS positive for benzos and cannabinoids - Per chart review has h/o alcoholism. Will continue to monitor vitals for signs of DTs. ASE protocol in place. - Given Haldol in the ED. Will order haldol PRN for the floor for agitation. - Case management consulted: pt denied MHMR; found to be not A&O and without help at home; CM is looking into placement and trying to contact relatives or friends who could help KOURTNEY: - Resolved. Bun/Cr 50/2.04 on admission. Today resolved to 10/0.8 - Likely pre-renal in origin. Discontinued fluids as patient is having good PO fluid intake. - Any intrinsic renal process r/o - Will continue to follow with QD BMPs Superficial left foot wounds: - Likely 2/2 trench foot from poor foot hygiene and ill-fitting shoes. Appear to be blisters that have peeled. - No major concern for cellulitis as erythema is B/L and patient denies any pain on exam. Also, patient remains afebrile and WBC is WNL. ESR 2. - X-ray of L foot pending to r/o deep tissue or bone involvement as well as any acute fracture that needs to be addressed. - Wound care is consulted and changing out dressings - No abx needed at this time Thrombocytopenia & Leukopenia - likely 2/2 to dilutional vs malnutrition - Will continue to trend H/o epilepsy: - Will check home medication blood levels to ensure compliance - Will resume home medications HTN: - Will resume home medications HLD: - Will resume home medications DISPO: discharge within 1-2 days pending case management placement CODE: FULL Case discussed with Dr. Cramer <Lea Moy - Last Filed: 12/02/17 11:49> Attending Addendum - Attending Addendum Date/Time: 12/02/17 8061 I personally evaluated the patient and discussed the management with Dr. Moy. I agree with the History, Examination, Assessment and Plan documented above with any addition or exceptions noted below. The patient is unsafe to go home by himself and family is not able to care for him anylonger. Social work is working with APS to find a safe discharge plan. <Lily Cramer - Last Filed: 12/02/17 17:15>
[2017-12-02] MEDS: Metoprolol Tartrate 25 MG TAB PO SCH (07:55)
[2017-12-02] MEDS: PARoxetine 20 MG TAB PO SCH ×2 (07:56→19:44)
[2017-12-02] MEDS: levETIRAcetam 500 MG TAB PO SCH ×2 (07:56→19:43)
[2017-12-02] MEDS: Magnesium Oxide 400 MG TAB PO SCH (07:57)
[2017-12-02] MEDS: Multivitamin W/ Minerals 1 TAB PO SCH (07:57)
[2017-12-02] MEDS: Donepezil HCl 5 MG TAB PO SCH (07:57)
[2017-12-02] MEDS: Folic Acid 1 MG TAB PO SCH (07:57)
[2017-12-02] MEDS: Lactated Ringer's 1,000 ML IV SCH (07:58)
[2017-12-02] MEDS: Gabapentin 300 MG CAP PO SCH (19:43)
[2017-12-02] MEDS: Acetaminophen 325 MG TAB PO PRN (19:45)
[2017-12-02] MEDS: Haloperidol Lactate 5 MG/ML VIAL IM PRN (19:46)
[2017-12-03 05:27] LABS: Anion Gap 12 mmol/L (10-20); BUN (Urea Nitrogen) 14 mg/dL (8.9-20.6); Calc. Creatinine Clearance 126 mL/min (70-130); Calcium 9.4 mg/dL (7.8-10.44); Carbon Dioxide 27 mmol/L (22-29); Chloride 101 mmol/L (98-107); Estimated GFR-MDRD Greater than 90; Glucose 87 mg/dL (70-105); Potassium 3.8 mmol/L (3.5-5.1); Sodium 136 mmol/L (136-145)
--- NOTE | 2017-12-03 06:04 | PDOC.FM ---
- Subjective Subjective: Patient's condition is stable and unchanged from yesterday. He has no complaints or concerns this morning. Patient remains AXO X2. He denies any SOB, chest pain, abdominal pain, fever or NVD. - Objective Vital Signs & Weight: Vital Signs (12 hours) Temp Pulse Resp BP BP Pulse Ox 12/03/17 04:00 97.8 F 56 L 20 146/81 H 146/81 H 99 12/03/17 00:30 63 12/03/17 00:00 97.5 F L 51 L 20 127/82 97 12/02/17 20:00 98.0 F 59 L 20 144/87 H 96 Weight Admit Weight 81.647 kg Weight 81.647 kg I&O: 12/01/17 12/02/17 12/03/17 06:59 06:59 06:59 Intake Total 3290 3510 850 Output Total 1800 1650 Balance 3290 1710 -800 Result Diagrams: 12/02/17 04:05 12/03/17 04:41 <Lea Moy - Last Filed: 12/03/17 08:46> - Objective Vital Signs & Weight: Vital Signs (12 hours) Temp Pulse Resp BP Pulse Ox 12/03/17 17:34 97.8 F 66 20 153/89 H 96 12/03/17 11:02 98.0 F 49 L 20 135/78 96 12/03/17 08:00 97.8 F 53 L 16 143/92 H 97 Weight Admit Weight 81.647 kg Weight 81.647 kg I&O: 12/02/17 12/03/17 12/04/17 06:59 06:59 06:59 Intake Total 3510 850 720 Output Total 1800 1650 800 Balance 1710 -800 -80 Result Diagrams: 12/02/17 04:05 12/03/17 04:41 <Lily Cramer - Last Filed: 12/03/17 19:17> Phys Exam - Physical Examination Constitutional: NAD poorly groomed, resting in bed HEENT: PERRLA, moist MMs, sclera anicteric Neck: supple, full ROM Respiratory: no wheezing, clear to auscultation bilateral Cardiovascular: RRR, no significant murmur Gastrointestinal: soft, non-tender, positive bowel sounds Musculoskeletal: no edema, pulses present Neurological: non-focal, moves all 4 limbs Psychiatric: A&O x 3 Deviation from normal: blister on medial malleolus of right foot, blister on pad of left foot <Lea Moy - Last Filed: 12/03/17 08:46> Dx/Plan (1) KOURTNEY (acute kidney injury) Code(s): N17.9 - ACUTE KIDNEY FAILURE, UNSPECIFIED Status: Acute (2) Acute psychosis Code(s): F23 - BRIEF PSYCHOTIC DISORDER Status: Acute (3) Injury of foot, superficial Code(s): S90.929A - UNSP SUPERFICIAL INJURY OF UNSPECIFIED FOOT, INIT ENCNTR Status: Acute (4) Epilepsy Code(s): G40.909 - EPILEPSY, UNSP, NOT INTRACTABLE, WITHOUT STATUS EPILEPTICUS Status: Chronic (5) HLD (hyperlipidemia) Code(s): E78.5 - HYPERLIPIDEMIA, UNSPECIFIED Status: Chronic (6) HTN (hypertension) Code(s): I10 - ESSENTIAL (PRIMARY) HYPERTENSION Status: Chronic (7) Thrombocytopenia Code(s): D69.6 - THROMBOCYTOPENIA, UNSPECIFIED Status: Acute - Plan Plan: 47YOM with a PMH of epilepsy who was brought to the ED after being found walking around [employer] and dx with acute psychosis, now improved. Acute psychosis: - Etiology remains unclear. Per chart review, patient has no previous psychiatric history. Could be 2/2 substance abuse, metabolic derangements, infection, EtOH withdrawal, or a new onset psychiatric disorder. - WBC WNL and afebrile on admission - UDS positive for benzos and cannabinoids - Per chart review has h/o alcoholism. Will continue to monitor vitals for signs of DTs. ASE protocol in place. - Given Haldol in the ED. Will order haldol PRN for the floor for agitation. - Case management consulted: Pt's mother delivered documentation from previous psychiatrist as well as income statements that will hopefully help to get patient placement KOURTNEY: - Resolved. Bun/Cr 50/2.04 on admission. Today resolved to 14/0.82 - Likely pre-renal in origin. Discontinued fluids as patient is having good PO fluid intake. - Any intrinsic renal process r/o - Will continue to follow with QD BMPs Superficial left foot wounds: - Likely 2/2 trench foot from poor foot hygiene and ill-fitting shoes. Appear to be blisters that have peeled. - No major concern for cellulitis as erythema is B/L and patient denies any pain on exam. Also, patient remains afebrile and WBC is WNL. ESR 2. - X-ray of L foot pending to r/o deep tissue or bone involvement as well as any acute fracture that needs to be addressed. - Wound care is consulted and changing out dressings - No abx needed at this time Thrombocytopenia & Leukopenia - likely 2/2 to dilutional vs malnutrition - Patient is tolerating diet well and hydrating PO - Will continue to trend H/o epilepsy: - Will check home medication blood levels to ensure compliance - Will resume home medications HTN: - Will resume home medications HLD: - Will resume home medications DISPO: discharge as soon as CM finds placement for pt CODE: FULL Diet: HH with suplena BID Case discussed with Dr. Cramer <Lea Moy - Last Filed: 12/03/17 08:46> Attending Addendum - Attending Addendum Date/Time: 12/03/171915 I personally evaluated the patient and discussed the management with Dr. Moy. I agree with the History, Examination, Assessment and Plan documented above with any addition or exceptions noted below. The patient remains stable. Case management is assisting in placement for the patient. <Lily Cramer - Last Filed: 12/03/17 19:17>
[2017-12-03] MEDS: Donepezil HCl 5 MG TAB PO SCH (07:29)
[2017-12-03] MEDS: Magnesium Oxide 400 MG TAB PO SCH (07:29)
[2017-12-03] MEDS: levETIRAcetam 500 MG TAB PO SCH ×2 (07:29→21:34)
[2017-12-03] MEDS: PARoxetine 20 MG TAB PO SCH ×2 (07:30→21:35)
[2017-12-03] MEDS: Folic Acid 1 MG TAB PO SCH (07:30)
[2017-12-03] MEDS: Metoprolol Tartrate 25 MG TAB PO SCH (07:30)
[2017-12-03] MEDS: Multivitamin W/ Minerals 1 TAB PO SCH (07:30)
[2017-12-03] MEDS: Gabapentin 300 MG CAP PO SCH (21:34)
[2017-12-04] MEDS: Folic Acid 1 MG TAB PO SCH (07:34)
[2017-12-04] MEDS: Multivitamin W/ Minerals 1 TAB PO SCH (07:34)
[2017-12-04] MEDS: levETIRAcetam 500 MG TAB PO SCH ×2 (07:35→20:14)
[2017-12-04] MEDS: PARoxetine 20 MG TAB PO SCH ×2 (07:36→20:14)
[2017-12-04] MEDS: Metoprolol Tartrate 25 MG TAB PO SCH (07:37)
[2017-12-04] MEDS: Donepezil HCl 5 MG TAB PO SCH (07:38)
[2017-12-04] MEDS: Magnesium Oxide 400 MG TAB PO SCH (07:38)
--- NOTE | 2017-12-04 08:45 | PDOC.FM ---
- Subjective Subjective: Patient is a 47 yo M here for acute psychosis episode that has no improved. Patient remains AXO X 2. He was responding more appropriately to questions this morning and was less distractable and tangential. He was still unclear as to how he got to the hospital, he did not know his previous address or why he was in the hospital. He denies any SOB, chest or abdominal pain, fever, chills, NVD. - Objective MAR Reviewed: Yes Vital Signs & Weight: Vital Signs (12 hours) Temp Pulse Resp BP Pulse Ox 12/04/17 07:30 98.1 F 63 18 121/82 94 L Weight Admit Weight 81.647 kg Weight 81.647 kg I&O: 12/03/17 12/04/17 12/05/17 06:59 06:59 06:59 Intake Total 850 960 Output Total 1650 1200 Balance -800 -240 Result Diagrams: 12/02/17 04:05 12/03/17 04:41 <Lea Moy - Last Filed: 12/04/17 11:11> - Objective Vital Signs & Weight: Vital Signs (12 hours) Temp Pulse Resp BP BP Pulse Ox 12/04/17 08:00 98.1 F 63 18 121/82 94 L 12/04/17 07:30 98.1 F 63 18 121/82 94 L Weight Admit Weight 81.647 kg Weight 81.647 kg I&O: 12/03/17 12/04/17 12/05/17 06:59 06:59 06:59 Intake Total 850 960 Output Total 1650 1200 Balance -800 -240 Result Diagrams: 12/02/17 04:05 12/03/17 04:41 <Lily Cramer - Last Filed: 12/04/17 16:04> Phys Exam - Physical Examination Constitutional: NAD poorly groomed, malnurished HEENT: PERRLA, moist MMs, sclera anicteric Neck: no JVD, supple, full ROM Respiratory: no wheezing, no rales, clear to auscultation bilateral Cardiovascular: RRR, no significant murmur Gastrointestinal: soft, non-tender, no distention, positive bowel sounds Musculoskeletal: pulses present Neurological: non-focal, moves all 4 limbs Psychiatric: A&O x 3 Deviation from normal: ulcer to medial malleolus on right, ulcer on right foot <Lea Moy - Last Filed: 12/04/17 11:11> Dx/Plan (1) KOURTNEY (acute kidney injury) Code(s): N17.9 - ACUTE KIDNEY FAILURE, UNSPECIFIED Status: Acute (2) Acute psychosis Code(s): F23 - BRIEF PSYCHOTIC DISORDER Status: Acute (3) Injury of foot, superficial Code(s): S90.929A - UNSP SUPERFICIAL INJURY OF UNSPECIFIED FOOT, INIT ENCNTR Status: Acute (4) Epilepsy Code(s): G40.909 - EPILEPSY, UNSP, NOT INTRACTABLE, WITHOUT STATUS EPILEPTICUS Status: Chronic (5) HLD (hyperlipidemia) Code(s): E78.5 - HYPERLIPIDEMIA, UNSPECIFIED Status: Chronic (6) HTN (hypertension) Code(s): I10 - ESSENTIAL (PRIMARY) HYPERTENSION Status: Chronic (7) Thrombocytopenia Code(s): D69.6 - THROMBOCYTOPENIA, UNSPECIFIED Status: Acute - Plan Plan: 47YOM with a PMH of epilepsy who was brought to the ED after being found walking around [employer] and dx with acute psychosis, now improved. Acute psychosis: - Etiology remains unclear. Per chart review, patient has no previous psychiatric history. Could be 2/2 substance abuse, metabolic derangements, infection, EtOH withdrawal, or a new onset psychiatric disorder. - WBC WNL and afebrile on admission - UDS positive for benzos and cannabinoids - Per chart review has h/o alcoholism. Will continue to monitor vitals for signs of DTs. ASE protocol in place. - Given Haldol in the ED. Will order haldol PRN for the floor for agitation. - Case management consulted: Pt's mother delivered documentation from previous psychiatrist as well as income statements that will hopefully help to get patient placement KOURTNEY: - Resolved. Bun/Cr 50/2.04 on admission. Today resolved to 14/0.82 - Likely pre-renal in origin. Discontinued fluids as patient is having good PO fluid intake. - Any intrinsic renal process r/o Superficial left foot wounds: - Likely 2/2 trench foot from poor foot hygiene and ill-fitting shoes. Appear to be blisters that have peeled. - No major concern for cellulitis as erythema is B/L and patient denies any pain on exam. Also, patient remains afebrile and WBC is WNL. ESR 2. - X-ray of L foot: mild degenerative change at 1st MTP. - Wound care is consulted and changing out dressings - No abx needed at this time Thrombocytopenia & Leukopenia - likely 2/2 to dilutional vs malnutrition - Resolved H/o epilepsy: - Will check home medication blood levels to ensure compliance - Will resume home medications HTN: - Will resume home medications HLD: - Will resume home medications DISPO: discharge as soon as CM finds placement for pt CODE: FULL Diet: HH with suplena BID Case discussed with Dr. Cramer <Lea Moy - Last Filed: 12/04/17 11:11> Attending Addendum - Attending Addendum Date/Time: 12/04/17 1602 I personally evaluated the patient and discussed the management with Dr. Moy. I agree with the History, Examination, Assessment and Plan documented above with any addition or exceptions noted below. The patient is stable. Case management is still trying to find placement for the patient. Wound care continues. <Lily Cramer - Last Filed: 12/04/17 16:04>
--- NOTE | 2017-12-04 13:01 | PQF ---
CLINICAL DOCUMENTATION IMPROVEMENT CLARIFICATION FORM: ICD-10 Updated PLEASE DO AN ADDENDUM TO THE PROGRESS NOTE WITH ANY DOCUMENTATION UPDATES OR ADDITIONS AND CARRY THROUGH TO DC SUMMARY. THANK YOU. DATE: 12/04/17 ATTN : DR. MORALES Please exercise your independent, professional judgment in responding to the clarification form. Clinical indicators are provided on the bottom of this form for your review Please check appropriate box(s): [ ] Encephalopathy: Type: [ ] Acute [ ] Subacute [ X ] Chronic Etiology: [ ] Hypertensive [ ] Metabolic [ ] Toxic [ ] Hepatic with Coma [ ] Hepatic w/o Coma [ ] Hypoxic [ ] Septic [ ] Drug induced: [ X ] Unspecified - multisubstance abuse [ ] in the setting of underlying dementia [ ] Other (please specify) [ ] Transient Alteration of Awareness [ ] Other diagnosis [ X ] Unable to determine In addition, please specify: Present on Admission (POA): [X ] Yes [ ] No [ ] Unable to determine For continuity of documentation, please document condition throughout progress notes and discharge summary. Thank You. CLINICAL INDICATORS - SIGNS / SYMPTOMS / LABS H&P 11/29: "...WAS BROUGHT INTO ED AFTER FOUND WANDERING AROUND [place]IDE [employer]. THE PATIENT WAS ACUTELY PSYCHOTIC ON EXAM REFERRING TO PEOPLE WHO WERE NOT IN THE ROOM AND NOT ANSWERING THE MAJORITY OF OUR QUESTIONS APPROPRIATELY." PROGRESS NOTE 12/04: " ACUTE PSYCHOSIS" RISKS: KOURTNEY (PROGRESS NOTE 12/04) POSITIVE FOR BENZOS AND CANNABINOIDS (PROGRESS NOTE 12/04) TREATMENT: BRAIN CT 11/29 PAXIL (11/30-PRESENT) ARICEPT (11/30-PRESENT) HALDOL IM (11/29-PRESENT) SAP Greeting Card Maker [employer] Winform Viewer (This form is maintained as a part of the permanent medical record) 2014 [employer]. All Rights Reserved [email or web address] Office: [phone] [facility] HOSPITALAsim
[2017-12-04] MEDS: Gabapentin 300 MG CAP PO SCH (20:14)
--- NOTE | 2017-12-05 06:32 | PDOC.FM ---
- Subjective Subjective: No events overnight. Pt has no complaints or concerns. He expresses he is ready to leave the hospital and understands he will be going to a facility. Patient is able to state his name and knows he is in a hospital, but is unable to say what town he is in or where he was living prior to coming to the hospital. He denies SOB, chest pain, abdominal pain, subjective fever, NVD. - Objective MAR Reviewed: Yes Vital Signs & Weight: Vital Signs (12 hours) Temp Pulse Resp BP BP Pulse Ox 12/05/17 04:01 129/69 12/05/17 04:00 97.8 F 50 L 16 129/69 96 12/05/17 00:03 134/85 12/05/17 00:00 98.1 F 55 L 16 134/85 98 12/04/17 20:12 98.1 F 54 L 12 125/81 96 12/04/17 19:04 98.1 F 54 L 12 125/81 96 Weight Admit Weight 81.647 kg Weight 81.647 kg I&O: 12/03/17 12/04/17 12/05/17 06:59 06:59 06:59 Intake Total 757 173 2924 Output Total 1650 1200 2225 Balance -800 -240 -125 Result Diagrams: 12/02/17 04:05 12/03/17 04:41 Phys Exam - Physical Examination Constitutional: NAD poorly groomed, resting comfortably HEENT: PERRLA, moist MMs Neck: no JVD, supple, full ROM Respiratory: no wheezing, no rales, clear to auscultation bilateral Cardiovascular: RRR, no significant murmur Gastrointestinal: soft, non-tender, no distention, positive bowel sounds Musculoskeletal: no edema, pulses present Neurological: non-focal, moves all 4 limbs Deviation from normal: AXOX2 Skin: no rash, normal turgor Dx/Plan (1) KOURTNEY (acute kidney injury) Code(s): N17.9 - ACUTE KIDNEY FAILURE, UNSPECIFIED Status: Acute (2) Acute psychosis Code(s): F23 - BRIEF PSYCHOTIC DISORDER Status: Acute (3) Injury of foot, superficial Code(s): S90.929A - UNSP SUPERFICIAL INJURY OF UNSPECIFIED FOOT, INIT ENCNTR Status: Acute (4) Epilepsy Code(s): G40.909 - EPILEPSY, UNSP, NOT INTRACTABLE, WITHOUT STATUS EPILEPTICUS Status: Chronic (5) HLD (hyperlipidemia) Code(s): E78.5 - HYPERLIPIDEMIA, UNSPECIFIED Status: Chronic (6) HTN (hypertension) Code(s): I10 - ESSENTIAL (PRIMARY) HYPERTENSION Status: Chronic (7) Thrombocytopenia Code(s): D69.6 - THROMBOCYTOPENIA, UNSPECIFIED Status: Acute - Plan Plan: 47YOM with a PMH of epilepsy who was brought to the ED after being found walking around [employer] and dx with acute psychosis, now improved. Pt has been accepted to a facility and we are waiting for doctor to follow pt there. Will f/u with CM today. Acute psychosis: - Etiology remains unclear. Per chart review, patient has no previous psychiatric history. Likely 2/2 to polysubstance abuse vs post-ictal from seizure - UDS positive for benzos and cannabinoids - Per chart review has h/o alcoholism. Will continue to monitor vitals for signs of DTs. ASE protocol in place. - Given Haldol in the ED. Will order haldol PRN for the floor for agitation. - Case management consulted: Pt's mother delivered documentation from previous psychiatrist as well as income statements that will hopefully help to get patient placement KOURTNEY: - Resolved. Bun/Cr 50/2.04 on admission. Today resolved to 14/0.82 - Likely pre-renal in origin. Discontinued fluids as patient is having good PO fluid intake. - Any intrinsic renal process r/o Superficial left foot wounds: - Likely 2/2 trench foot from poor foot hygiene and ill-fitting shoes. - Pt remains afebrile - X-ray of L foot: mild degenerative change at 1st MTP. - Wound care is consulted and changing out dressings - No abx needed at this time Thrombocytopenia & Leukopenia - likely 2/2 to dilutional vs malnutrition - Resolved H/o epilepsy: - Will resume home medications HTN: - Will resume home medications HLD: - Will resume home medications DISPO: discharge soon as pt has been accepted to [facility]. We are waiting on a doctor to follow pt there per CM. CODE: FULL Diet: HH with suplena BID Case discussed with Dr. Mensah
[2017-12-05] MEDS: levETIRAcetam 500 MG TAB PO SCH ×2 (07:40→20:20)
[2017-12-05] MEDS: Folic Acid 1 MG TAB PO SCH (07:40)
[2017-12-05] MEDS: Donepezil HCl 5 MG TAB PO SCH (07:41)
[2017-12-05] MEDS: Magnesium Oxide 400 MG TAB PO SCH (07:41)
[2017-12-05] MEDS: PARoxetine 20 MG TAB PO SCH ×2 (07:41→20:19)
[2017-12-05] MEDS: Metoprolol Tartrate 25 MG TAB PO SCH (07:42)
[2017-12-05] MEDS: Multivitamin W/ Minerals 1 TAB PO SCH (07:42)
--- NOTE | 2017-12-05 13:23 | EKG ---
Test Reason : Blood Pressure : / mmHG Vent. Rate : 072 BPM Atrial Rate : 072 BPM P-R Int : 154 ms QRS Dur : 082 ms QT Int : 390 ms P-R-T Axes : 065 027 018 degrees QTc Int : 427 ms Normal sinus rhythm Normal ECG Confirmed by JORGE ALBERTO ANTHONY M.D. ([id number]), online content editor RANDY RODRIGUEZ ([id number]) on 12/05/2017 1:23:26 PM Referred By: Confirmed By:JORGE ALBERTO ANTHONY M.D.
[2017-12-05] MEDS: Acetaminophen 325 MG TAB PO PRN (20:19)
[2017-12-05] MEDS: Gabapentin 300 MG CAP PO SCH (20:20)
[2017-12-05] MEDS: Enoxaparin Sodium 40 MG/0.4 ML SYRINGE SC SCH (21:06)
[2017-12-05] MEDS: Ibuprofen 800 MG TAB PO PRN (21:07)
--- NOTE | 2017-12-06 06:00 | PDOC.FM ---
- Subjective Subjective: Patient complained of tooth pain overnight and was given ibuprofen. Patient states tooth ache is better this morning. Per the nurse, she walked with him around the [place] and he is very unsteady on his feet. He has mild foot pain from his blisters but states that it is improved and is being followed by wound care. He maintains that he wishes to get out of the hospital. He is axox3, but remains unclear as to how he got to the hospital and where he had been living. He denies any SOB, chest or abdominal pain, NVD, or subjective fever. - Objective MAR Reviewed: Yes Vital Signs & Weight: Vital Signs (12 hours) Temp Pulse Resp BP BP Pulse Ox 12/05/17 20:00 98.1 F 62 16 128/67 96 12/05/17 19:11 98.1 F 62 16 128/67 96 Weight Admit Weight 81.647 kg Weight 81.647 kg I&O: 12/04/17 12/05/17 12/06/17 06:59 06:59 06:59 Intake Total 960 2100 1140 Output Total 1200 2225 1500 Balance -240 -125 -360 Result Diagrams: 12/02/17 04:05 12/03/17 04:41 Phys Exam - Physical Examination Constitutional: NAD resting comfortably HEENT: PERRLA, moist MMs, sclera anicteric Neck: supple, full ROM Respiratory: no wheezing, no rales, clear to auscultation bilateral Cardiovascular: RRR, no significant murmur Gastrointestinal: soft, non-tender, no distention, positive bowel sounds Musculoskeletal: pulses present Neurological: non-focal, moves all 4 limbs Psychiatric: normal affect, A&O x 3 Skin: no rash, cap refill <2 seconds Dx/Plan (1) KOURTNEY (acute kidney injury) Code(s): N17.9 - ACUTE KIDNEY FAILURE, UNSPECIFIED Status: Acute (2) Acute psychosis Code(s): F23 - BRIEF PSYCHOTIC DISORDER Status: Acute (3) Injury of foot, superficial Code(s): S90.929A - UNSP SUPERFICIAL INJURY OF UNSPECIFIED FOOT, INIT ENCNTR Status: Acute (4) Epilepsy Code(s): G40.909 - EPILEPSY, UNSP, NOT INTRACTABLE, WITHOUT STATUS EPILEPTICUS Status: Chronic (5) HLD (hyperlipidemia) Code(s): E78.5 - HYPERLIPIDEMIA, UNSPECIFIED Status: Chronic (6) HTN (hypertension) Code(s): I10 - ESSENTIAL (PRIMARY) HYPERTENSION Status: Chronic (7) Thrombocytopenia Code(s): D69.6 - THROMBOCYTOPENIA, UNSPECIFIED Status: Acute - Plan Plan: 47YOM with a PMH of epilepsy who was brought to the ED after being found walking around [employer] and dx with acute psychosis, now improved. Pt has been accepted to a facility and we are waiting for doctor to follow pt there. Will f/u with CM. Acute psychosis: - Etiology remains unclear. Per chart review, patient has no previous psychiatric history. Likely 2/2 to polysubstance abuse vs post-ictal from seizure - UDS positive for benzos and cannabinoids - Per chart review has h/o alcoholism. Will continue to monitor vitals for signs of DTs. ASE protocol in place. - Haldol PRN for the floor for agitation. - Overall pt is AXOX3 but is still unable to recount how or why he is in the hospital. He is also unaware that he was living by himself and believes he was living with his parents before going to the hospital. - PT consult for patient to regain strength - Case management consulted: Pt's mother delivered documentation from previous psychiatrist as well as income statements that will hopefully help to get patient placement KOURTNEY: - Resolved. Bun/Cr 50/2.04 on admission. No new labs have been drawn as this issue had resolved. - Likely pre-renal in origin. Discontinued fluids as patient is having good PO fluid intake. - Any intrinsic renal process r/o Superficial left foot wounds: - Likely 2/2 trench foot from poor foot hygiene and ill-fitting shoes. - Pt remains afebrile - X-ray of L foot: mild degenerative change at 1st MTP. - Wound care is consulted and changing out dressings. Blisters have improved. Will f/u today to make sure wound care comes by. - No abx needed at this time Thrombocytopenia & Leukopenia - likely 2/2 to dilutional vs malnutrition - Resolved H/o epilepsy: - Will resume home medications HTN: - Will resume home medications HLD: - Will resume home medications DISPO: discharge soon as pt has been accepted to [facility]. We are waiting on a doctor to follow pt there per CM. CODE: FULL Diet: HH with suplena BID Case discussed with Dr. Mensah
[2017-12-06] MEDS: levETIRAcetam 500 MG TAB PO SCH ×2 (07:57→20:09)
[2017-12-06] MEDS: Magnesium Oxide 400 MG TAB PO SCH (07:57)
[2017-12-06] MEDS: PARoxetine 20 MG TAB PO SCH ×2 (07:58→20:07)
[2017-12-06] MEDS: Metoprolol Tartrate 25 MG TAB PO SCH (07:58)
[2017-12-06] MEDS: Folic Acid 1 MG TAB PO SCH (07:58)
[2017-12-06] MEDS: Multivitamin W/ Minerals 1 TAB PO SCH (07:58)
[2017-12-06] MEDS: Donepezil HCl 5 MG TAB PO SCH (07:59)
--- NOTE | 2017-12-06 19:42 | ADD-PRG ---
ADDENDUM DATE OF SERVICE: 12/05/2017 Please see the note from Dr. Moy for which I agree. The patient was seen and evaluated and discussed with the residents. This is a 47-year-old gentleman who comes in for now 6 days acutely psychotic, possibly medical nonco mpliance. It is really unclear what caused it nonetheless back on all home medications and things ar e fairly stable, but at this point in time with the placement issues, he is not safe to take care of himself because of obvious psychiatric issues, possible schizophrenia or schizoaffective disorder, an d so we are really waiting on placement and case management helping us to figure that out, but right now, he is stable on current medicines, no complaints and no major agitation or issues.
[2017-12-06] MEDS: Enoxaparin Sodium 40 MG/0.4 ML SYRINGE SC SCH (20:09)
[2017-12-06] MEDS: Ibuprofen 800 MG TAB PO PRN (20:09)
[2017-12-06] MEDS: Gabapentin 300 MG CAP PO SCH (20:09)
[2017-12-06] MEDS: Haloperidol Lactate 5 MG/ML VIAL IM PRN (20:14)
[2017-12-07 05:27] LABS: #Eosinphils 0.2 thou/uL (0.0-0.7); #Lymphocytes 2.1 thou/uL (1.20-3.40); #Monocytes 0.7 thou/uL (0.11-0.59); %Basophils 0.8 % (0.0-1.0); %Eosinophils 3.5 % (0.0-10.0); %Lymphocytes 41.1 % (21.0-51.0); %Monocytes 14.8 % (0.0-10.0); %Neutrophils 39.9 % (42.0-75.0); Hemoglobin 14.6 g/dL (14.0-18.0); Mean Corpuscular HGB CONC 35.4 g/dL (32.0-36.0); Mean Corpuscular Hemoglobin 31.9 pg (27.0-31.0); Mean Corpuscular Volume 90.1 fL (78.0-98.0); Mean Platelet Volume 6.9 fL (7.4-10.4); Platelet Count 149 thou/uL (130-400); RBC Distribution Width 12.5 % (11.5-14.5); Red Blood Cell (RBC) Count 4.58 mill/uL (4.70-6.10)
--- NOTE | 2017-12-07 05:33 | PDOC.FM ---
- Subjective Subjective: No acute events overnight. Patient has no complaints or concerns and expresses he wishes to leave. Patient was axox2 today. He is unable to remember which town he is in despite asking several days in a row. He still gets confused on how and why he ended up in the hospital and where he was living prior to his admission. He denies SOB, chest pain, abdominal pain, NVD or subjective fever. - Objective MAR Reviewed: Yes Vital Signs & Weight: Vital Signs (12 hours) Temp Pulse Resp BP Pulse Ox 12/06/17 18:52 97.9 F 62 18 146/92 H 96 Weight Admit Weight 81.647 kg Weight 81.647 kg I&O: 12/05/17 12/06/17 12/07/17 06:59 06:59 06:59 Intake Total 2100 1140 480 Output Total 2225 1500 1500 Balance -125 -360 -1020 Result Diagrams: 12/07/17 05:06 12/07/17 05:06 <Lea Moy - Last Filed: 12/07/17 10:43> - Objective Vital Signs & Weight: Vital Signs (12 hours) Temp Pulse Resp BP Pulse Ox 12/07/17 08:00 97.4 F L 60 18 97 12/07/17 07:53 97.4 F L 60 18 130/83 99 Weight Admit Weight 81.647 kg Weight 81.647 kg I&O: 12/06/17 12/07/17 12/08/17 06:59 06:59 06:59 Intake Total 1140 740 360 Output Total 1500 1810 Balance -360 -1070 360 Result Diagrams: 12/07/17 05:06 12/07/17 05:06 <Luis Carlos Love - Last Filed: 12/07/17 12:34> Phys Exam - Physical Examination Constitutional: NAD resting comfortably HEENT: PERRLA, moist MMs, sclera anicteric Neck: supple, full ROM Respiratory: no wheezing, no rales, no rhonchi, clear to auscultation bilateral Cardiovascular: RRR, no significant murmur, no rub Gastrointestinal: soft, no distention, positive bowel sounds Musculoskeletal: no edema, pulses present Neurological: moves all 4 limbs Deviation from normal: upon discussion remains confused about certain things axox2 Skin: no rash Deviation from normal: wound to left foot pad, right medial malleolus <Lea Moy - Last Filed: 12/07/17 10:43> Dx/Plan (1) KOURTNEY (acute kidney injury) Code(s): N17.9 - ACUTE KIDNEY FAILURE, UNSPECIFIED Status: Acute (2) Acute psychosis Code(s): F23 - BRIEF PSYCHOTIC DISORDER Status: Acute (3) Injury of foot, superficial Code(s): S90.929A - UNSP SUPERFICIAL INJURY OF UNSPECIFIED FOOT, INIT ENCNTR Status: Acute (4) Epilepsy Code(s): G40.909 - EPILEPSY, UNSP, NOT INTRACTABLE, WITHOUT STATUS EPILEPTICUS Status: Chronic (5) HLD (hyperlipidemia) Code(s): E78.5 - HYPERLIPIDEMIA, UNSPECIFIED Status: Chronic (6) HTN (hypertension) Code(s): I10 - ESSENTIAL (PRIMARY) HYPERTENSION Status: Chronic (7) Thrombocytopenia Code(s): D69.6 - THROMBOCYTOPENIA, UNSPECIFIED Status: Acute - Plan Plan: 47YOM with a PMH of epilepsy who was brought to the ED after being found walking around [employer] and dx with acute psychosis, now improved. Pt has been accepted to a facility and we are waiting for doctor to follow pt there. Will f/u with CM. Acute psychosis: - Etiology remains unclear. Likely 2/2 to polysubstance abuse vs post-ictal from seizure - UDS positive for benzos and cannabinoids - Haldol PRN for the floor for agitation. - Pt is AXOX2 but is still unable to recount how or why he is in the hospital. He is also unaware that he was living by himself and believes he was living with his parents before going to the hospital. - PT consult for patient to regain strength - Case management consulted: Pt's mother delivered documentation from previous psychiatrist as well as income statements that will hopefully help to get patient placement KOURTNEY: - Resolved. Bun/Cr 50/2.04 on admission. Today BUN went up to 28 Cr 1.08. Will encourage increased PO fluid intake. - Likely pre-renal in origin. Discontinued fluids as patient is having good PO fluid intake. - Any intrinsic renal process r/o Superficial left foot wounds: - Likely 2/2 trench foot from poor foot hygiene and ill-fitting shoes. - Pt remains afebrile - X-ray of L foot: mild degenerative change at 1st MTP. - Wound care is consulted and changing out dressings. Blisters have improved. Seen by wound care yesterday. Improved. - No abx needed at this time Thrombocytopenia & Leukopenia - Resolved. likely 2/2 to dilutional vs malnutrition H/o epilepsy: - Will resume home medications HTN: - BP: 120-140s/60-90s; HR 50-60. Will take off lopressor and add HCTZ for BP control. Will continue to monitor HR and BPs. HLD: - Will resume home medications DISPO: discharge soon as pt has been accepted to [facility]. We are waiting on a doctor to follow pt there per CM. CODE: FULL Diet: HH with suplena BID Case discussed with Dr. Love <Lea Moy - Last Filed: 12/07/17 10:43> Attending Addendum - Attending Addendum Date/Time: 12/07/17 1233 I personally evaluated the patient and discussed the management with Dr. Moy. I agree with the History, Examination, Assessment and Plan documented above with any addition or exceptions noted below. Patient overall at mental status baseline. No changes to medications today. We are awaiting placement at [facility] or another facility once accepted. He has no active conditions that necessitate inpatient care at this time. <Luis Carlos Love - Last Filed: 12/07/17 12:34>
[2017-12-07 05:47] LABS: Anion Gap 13 mmol/L (10-20); BUN (Urea Nitrogen) 28 mg/dL (8.9-20.6); Calc. Creatinine Clearance 96 mL/min (70-130); Calcium 9.7 mg/dL (7.8-10.44); Carbon Dioxide 24 mmol/L (22-29); Chloride 101 mmol/L (98-107); Estimated GFR-MDRD 73; Glucose 90 mg/dL (70-105); Potassium 4.2 mmol/L (3.5-5.1); Sodium 134 mmol/L (136-145)
[2017-12-07] MEDS: levETIRAcetam 500 MG TAB PO SCH ×2 (08:20→21:08)
[2017-12-07] MEDS: Magnesium Oxide 400 MG TAB PO SCH (08:21)
[2017-12-07] MEDS: Hydrochlorothiazide 25 MG TAB PO SCH (08:21)
[2017-12-07] MEDS: Multivitamin W/ Minerals 1 TAB PO SCH (08:21)
[2017-12-07] MEDS: PARoxetine 20 MG TAB PO SCH ×2 (08:21→21:08)
[2017-12-07] MEDS: Folic Acid 1 MG TAB PO SCH (08:21)
[2017-12-07] MEDS: Donepezil HCl 5 MG TAB PO SCH (08:22)
--- NOTE | 2017-12-07 13:43 | ADD-PRG ---
ADDENDUM Please see the note from Dr. Moy for which I agree. The patient was seen and evaluated and discus sed with the residents by bedside. Basically, no major changes going on here on Mr. Rodriguez. He is stable and we are waiting long term placement for him. Does have left foot wound that has not bee n addressed in a while and so we will need wound care to take a look and redress that and allow them to bandage it etc., but not like having any kind of complaints, currently stable on current psychiatr ic medicines and basically at this point in time it is just a placement issue on him and hopefully we will have more answers tomorrow.
[2017-12-07] MEDS: Gabapentin 300 MG CAP PO SCH (21:09)
[2017-12-07] MEDS: Enoxaparin Sodium 40 MG/0.4 ML SYRINGE SC SCH (21:11)
--- NOTE | 2017-12-08 05:25 | PDOC.FM ---
- Subjective Subjective: NO acute events overnight. Patient states his feet feel much better. He was able to walk around a bit yesterday and is gaining strength. Patient is axox2 today. He remains confused as to the details of how and why he got to the hospital and where he was living before the hospital. He denies SOB, chest or abdominal pain, subjective fever, NVD. - Objective MAR Reviewed: Yes Vital Signs & Weight: Vital Signs (12 hours) Temp Pulse Resp BP Pulse Ox 12/07/17 20:05 98.0 F 74 18 12/07/17 20:00 98.0 F 74 18 111/78 96 Weight Admit Weight 81.647 kg Weight 81.647 kg I&O: 12/06/17 12/07/17 12/08/17 06:59 06:59 06:59 Intake Total 1140 740 960 Output Total 1500 1810 950 Balance -360 -1070 10 Result Diagrams: 12/07/17 05:06 12/07/17 05:06 <Lea Moy - Last Filed: 12/08/17 12:10> - Objective Vital Signs & Weight: Vital Signs (12 hours) Temp Pulse Resp BP Pulse Ox 12/08/17 08:00 98.0 F 87 18 12/08/17 07:39 98.0 F 87 18 115/79 91 L Weight Admit Weight 81.647 kg Weight 81.647 kg I&O: 12/07/17 12/08/17 12/09/17 06:59 06:59 06:59 Intake Total 740 1310 Output Total 1810 1150 120 Balance -1070 160 -120 Result Diagrams: 12/07/17 05:06 12/07/17 05:06 <Luis Carlos Love - Last Filed: 12/08/17 12:37> Phys Exam - Physical Examination Constitutional: NAD resting comfortably in bed HEENT: PERRLA, moist MMs, sclera anicteric Neck: no JVD, supple, full ROM Respiratory: no wheezing, no rales, no rhonchi, clear to auscultation bilateral Cardiovascular: RRR, no significant murmur, no rub Gastrointestinal: soft, non-tender, positive bowel sounds Musculoskeletal: no edema, pulses present Neurological: non-focal, moves all 4 limbs Deviation from normal: axox2 Skin: no rash <Lea Moy - Last Filed: 12/08/17 12:10> Dx/Plan (1) KOURTNEY (acute kidney injury) Code(s): N17.9 - ACUTE KIDNEY FAILURE, UNSPECIFIED Status: Acute (2) Acute psychosis Code(s): F23 - BRIEF PSYCHOTIC DISORDER Status: Acute (3) Injury of foot, superficial Code(s): S90.929A - UNSP SUPERFICIAL INJURY OF UNSPECIFIED FOOT, INIT ENCNTR Status: Acute (4) Epilepsy Code(s): G40.909 - EPILEPSY, UNSP, NOT INTRACTABLE, WITHOUT STATUS EPILEPTICUS Status: Chronic (5) HLD (hyperlipidemia) Code(s): E78.5 - HYPERLIPIDEMIA, UNSPECIFIED Status: Chronic (6) HTN (hypertension) Code(s): I10 - ESSENTIAL (PRIMARY) HYPERTENSION Status: Chronic (7) Thrombocytopenia Code(s): D69.6 - THROMBOCYTOPENIA, UNSPECIFIED Status: Acute - Plan Plan: 47YOM with a PMH of epilepsy who was brought to the ED after being found walking around [employer] and dx with acute psychosis, now improved. Pt has been accepted to a facility and we are waiting for doctor to follow pt there. Will f/u with CM. Acute psychosis: - Etiology remains unclear. Likely 2/2 to polysubstance abuse vs post-ictal from seizure - UDS positive for benzos and cannabinoids - Haldol PRN for the floor for agitation. - Pt is AXOX2 but is still unable to recount how or why he is in the hospital. He is also unaware that he was living by himself and believes he was living with his parents before going to the hospital. - PT consult for patient to regain strength - Case management consulted: Pt's mother delivered documentation from previous psychiatrist as well as income statements that will hopefully help to get patient placement KOURTNEY: - Resolved. Bun/Cr 50/2.04 on admission. Yesterday, BUN went up to 28 Cr 1.08. Will encourage increased PO fluid intake. - Likely pre-renal in origin. Discontinued fluids as patient is having good PO fluid intake. - Any intrinsic renal process r/o Superficial left foot wounds: - Likely 2/2 trench foot from poor foot hygiene and ill-fitting shoes. - Pt remains afebrile - X-ray of L foot: mild degenerative change at 1st MTP. - Wound care is consulted and changing out dressings. Blisters have improved. Seen by wound care yesterday. Improved. - No abx needed at this time Thrombocytopenia & Leukopenia - Resolved. likely 2/2 to dilutional vs malnutrition H/o epilepsy: - Will resume home medications HTN: - BP: 111-146/70-80s (improved) HR 60-74. HCTZ for BP control. Will continue to monitor HR and BPs. HLD: - Will resume home medications DISPO: discharge soon as pt has been placed. Doctor at [facility] unable to accept new patient. CODE: FULL Diet: HH with suplena BID Case discussed with Dr. Love <Lea Moy - Last Filed: 12/08/17 12:10> Attending Addendum - Attending Addendum Date/Time: 12/08/17 2391 I personally evaluated the patient and discussed the management with Dr. Moy. I agree with the History, Examination, Assessment and Plan documented above with any addition or exceptions noted below. Patient mentation stable. Stable for discharge, but awaiting placement at hopefully [facility] though will explore other options if needed. <Luis Carlos Love - Last Filed: 12/08/17 12:37>
[2017-12-08] MEDS: levETIRAcetam 500 MG TAB PO SCH ×2 (09:40→20:21)
[2017-12-08] MEDS: Multivitamin W/ Minerals 1 TAB PO SCH (09:41)
[2017-12-08] MEDS: Hydrochlorothiazide 25 MG TAB PO SCH (09:41)
[2017-12-08] MEDS: PARoxetine 20 MG TAB PO SCH ×2 (09:44→20:21)
[2017-12-08] MEDS: Folic Acid 1 MG TAB PO SCH (09:44)
[2017-12-08] MEDS: Magnesium Oxide 400 MG TAB PO SCH (09:44)
[2017-12-08] MEDS: Donepezil HCl 5 MG TAB PO SCH (09:45)
[2017-12-08] MEDS: Ibuprofen 800 MG TAB PO PRN (20:21)
[2017-12-08] MEDS: Gabapentin 300 MG CAP PO SCH (20:21)
[2017-12-08] MEDS: Enoxaparin Sodium 40 MG/0.4 ML SYRINGE SC SCH (20:25)
--- NOTE | 2017-12-09 05:24 | PDOC.FM ---
- Subjective Subjective: no events overnight. He has no complaints or concerns. Expresses desire to get out of hospital. He is able to tell me his name, birthdate and the town he is in today. He notes that he is unable to recall how he ended up in the hospital. He denies SOB, chest or abdominal pain, subjective fever, NVD. - Objective Vital Signs & Weight: Vital Signs (12 hours) Temp Pulse Resp BP Pulse Ox 12/09/17 00:00 97.6 F 69 18 127/85 98 12/08/17 20:00 97.9 F 74 18 97 12/08/17 19:40 97.9 F 74 18 130/91 H 97 Weight Admit Weight 81.647 kg Weight 81.647 kg I&O: 12/07/17 12/08/17 12/09/17 06:59 06:59 06:59 Intake Total 740 1310 660 Output Total 1810 1150 360 Balance -1070 160 300 Result Diagrams: 12/07/17 05:06 12/07/17 05:06 <Lea Moy - Last Filed: 12/09/17 10:12> - Objective Vital Signs & Weight: Vital Signs (12 hours) Temp Pulse Resp BP Pulse Ox 12/09/17 08:45 97.5 F L 75 18 99 12/09/17 08:00 97.5 F L 75 18 140/104 H 99 Weight Admit Weight 81.647 kg Weight 81.647 kg I&O: 12/08/17 12/09/17 12/10/17 06:59 06:59 06:59 Intake Total 1310 1140 Output Total 1150 360 Balance 160 780 Result Diagrams: 12/07/17 05:06 12/07/17 05:06 <Luis Carlos Love - Last Filed: 12/09/17 12:16> Phys Exam - Physical Examination Constitutional: NAD resting comfortably HEENT: PERRLA, moist MMs, sclera anicteric Neck: no JVD, supple, full ROM Respiratory: no wheezing, no rales, no rhonchi, clear to auscultation bilateral Cardiovascular: RRR, no significant murmur, no rub Gastrointestinal: soft, non-tender, no distention, positive bowel sounds Musculoskeletal: pulses present Neurological: non-focal, moves all 4 limbs Psychiatric: A&O x 3 Deviation from normal: patient is conversing more normally today Skin: no rash <Lea Moy - Last Filed: 12/09/17 10:12> Dx/Plan (1) KOURTNEY (acute kidney injury) Code(s): N17.9 - ACUTE KIDNEY FAILURE, UNSPECIFIED Status: Acute (2) Acute psychosis Code(s): F23 - BRIEF PSYCHOTIC DISORDER Status: Acute (3) Injury of foot, superficial Code(s): S90.929A - UNSP SUPERFICIAL INJURY OF UNSPECIFIED FOOT, INIT ENCNTR Status: Acute (4) Epilepsy Code(s): G40.909 - EPILEPSY, UNSP, NOT INTRACTABLE, WITHOUT STATUS EPILEPTICUS Status: Chronic (5) HLD (hyperlipidemia) Code(s): E78.5 - HYPERLIPIDEMIA, UNSPECIFIED Status: Chronic (6) HTN (hypertension) Code(s): I10 - ESSENTIAL (PRIMARY) HYPERTENSION Status: Chronic (7) Thrombocytopenia Code(s): D69.6 - THROMBOCYTOPENIA, UNSPECIFIED Status: Acute - Plan Plan: 47YOM with a PMH of epilepsy who was brought to the ED after being found walking around [employer] and dx with acute psychosis, now improved. Placed at [facility]. Ready for discharge. Acute psychosis: - Etiology remains unclear. Likely 2/2 to polysubstance abuse vs post-ictal from seizure - UDS positive for benzos and cannabinoids - Haldol PRN for the floor for agitation. - Pt is AXOX3 today, but is still unable to recount how or why he is in the hospital. - PT consult for patient to regain strength; they recommend rehab - Case management consulted: placement has been quite difficult KOURTNEY: - Resolved. Bun/Cr 50/2.04 on admission. Will encourage increased PO fluid intake. - Likely pre-renal in origin. Discontinued fluids as patient is having good PO fluid intake. Superficial left foot wounds: - Likely 2/2 trench foot from poor foot hygiene and ill-fitting shoes. - Pt remains afebrile - X-ray of L foot: mild degenerative change at 1st MTP. - Wound care is consulted and changing out dressings. Blisters have improved. Seen by wound care. Improved. - No abx needed at this time Thrombocytopenia & Leukopenia - Resolved. likely 2/2 to dilutional vs malnutrition H/o epilepsy: - Will resume home medications HTN: - BP: 127-130/80s-91 (improved) HR 69-87. HCTZ for BP control. Will continue to monitor HR and BPs. HLD: - Will resume home medications DISPO: discharge today. Dr. Shahid has accepted patient at [facility] CODE: FULL Diet: HH with suplena BID Case discussed with Dr. Love <Lea Moy - Last Filed: 12/09/17 10:12> Attending Addendum - Attending Addendum Date/Time: 12/09/17 1215 I personally evaluated the patient and discussed the management with Dr. Moy. I agree with the History, Examination, Assessment and Plan documented above with any addition or exceptions noted below. Patient has had sudden change in mentation for the better, and he is now aware of present events and oriented. He desires to go home. We are hopeful to get him transferred to [facility] today if Dr. Shahid truly accepts him. Await further input from CM, but hopeful discharge today. If that is not improved, should talk with family about the potential for him to be discharged home since his mentation has improved. <Luis Carlos Love - Last Filed: 12/09/17 12:16>
[2017-12-09] MEDS: Hydrochlorothiazide 25 MG TAB PO SCH (08:47)
[2017-12-09] MEDS: levETIRAcetam 500 MG TAB PO SCH ×2 (08:48→20:23)
[2017-12-09] MEDS: Multivitamin W/ Minerals 1 TAB PO SCH (08:48)
[2017-12-09] MEDS: PARoxetine 20 MG TAB PO SCH ×2 (08:49→20:23)
[2017-12-09] MEDS: Folic Acid 1 MG TAB PO SCH (08:50)
[2017-12-09] MEDS: Magnesium Oxide 400 MG TAB PO SCH (08:50)
[2017-12-09] MEDS: Donepezil HCl 5 MG TAB PO SCH (08:50)
[2017-12-09] MEDS: Ibuprofen 800 MG TAB PO PRN (13:43)
[2017-12-09] MEDS: Acetaminophen 325 MG TAB PO PRN ×2 (15:35→20:31)
[2017-12-09] MEDS ORDERED: Nicotine 14 MG PATCH TD SCH (16:00)
[2017-12-09] MEDS ORDERED: Melatonin 3 MG TAB PO PRN (18:00)
[2017-12-09] MEDS: Gabapentin 300 MG CAP PO SCH (20:23)
[2017-12-09] MEDS: Enoxaparin Sodium 40 MG/0.4 ML SYRINGE SC SCH (20:24)
--- NOTE | 2017-12-10 06:02 | PDOC.FM ---
- Subjective Subjective: No events overnight. patient has no complaints or concerns. He denies SOB, chest or abdominal pain, fever, NVD. - Objective Vital Signs & Weight: Vital Signs (12 hours) Temp Pulse Resp BP Pulse Ox 12/09/17 20:00 97.6 F 62 16 98 12/09/17 19:57 97.6 F 62 16 128/80 98 Weight Admit Weight 81.647 kg Weight 81.647 kg I&O: 12/08/17 12/09/17 12/10/17 06:59 06:59 06:59 Intake Total 1310 1140 1240 Output Total 1150 360 Balance 863 128 3315 Result Diagrams: 12/07/17 05:06 12/07/17 05:06 <Lea Moy - Last Filed: 12/10/17 09:18> - Objective Vital Signs & Weight: Vital Signs (12 hours) Temp Pulse Resp BP Pulse Ox 12/10/17 08:00 97.4 F L 59 L 12 98 12/10/17 07:39 97.4 F L 59 L 12 125/83 98 Weight Admit Weight 81.647 kg Weight 81.647 kg I&O: 12/09/17 12/10/17 12/11/17 06:59 06:59 06:59 Intake Total 1140 1240 360 Output Total 360 Balance 780 1240 360 Result Diagrams: 12/07/17 05:06 12/07/17 05:06 <Luis Carlos Love - Last Filed: 12/10/17 12:49> Phys Exam - Physical Examination Constitutional: NAD resting comfortably HEENT: PERRLA, moist MMs, sclera anicteric Neck: no JVD, supple, full ROM Respiratory: no wheezing, no rales, no rhonchi, clear to auscultation bilateral Cardiovascular: RRR, no significant murmur, no rub Gastrointestinal: soft, non-tender, no distention, positive bowel sounds Musculoskeletal: pulses present Neurological: non-focal, moves all 4 limbs Psychiatric: A&O x 3 Skin: no rash Deviation from normal: medial malleolus blister, well healing; blister to foot pad wrapped <Lea Moy - Last Filed: 12/10/17 09:18> Dx/Plan (1) KOURTNEY (acute kidney injury) Code(s): N17.9 - ACUTE KIDNEY FAILURE, UNSPECIFIED Status: Acute (2) Acute psychosis Code(s): F23 - BRIEF PSYCHOTIC DISORDER Status: Acute (3) Injury of foot, superficial Code(s): S90.929A - UNSP SUPERFICIAL INJURY OF UNSPECIFIED FOOT, INIT ENCNTR Status: Acute (4) Epilepsy Code(s): G40.909 - EPILEPSY, UNSP, NOT INTRACTABLE, WITHOUT STATUS EPILEPTICUS Status: Chronic (5) HLD (hyperlipidemia) Code(s): E78.5 - HYPERLIPIDEMIA, UNSPECIFIED Status: Chronic (6) HTN (hypertension) Code(s): I10 - ESSENTIAL (PRIMARY) HYPERTENSION Status: Chronic (7) Thrombocytopenia Code(s): D69.6 - THROMBOCYTOPENIA, UNSPECIFIED Status: Acute - Plan Plan: 47YOM with a PMH of epilepsy who was brought to the ED after being found walking around [employer] and dx with acute psychosis, now improved. Placed at [facility]. Ready for discharge. Acute psychosis: - Etiology remains unclear. Likely 2/2 to polysubstance abuse vs post-ictal from seizure - UDS positive for benzos and cannabinoids - Haldol PRN for the floor for agitation. - Pt is AXOX3 today, but is still unable to recount how or why he is in the hospital. - PT consult for patient to regain strength; they recommend rehab - Case management consulted: placement has been quite difficult KOURTNEY: - Resolved. Bun/Cr 50/2.04 on admission. Will encourage increased PO fluid intake. - Likely pre-renal in origin. Discontinued fluids as patient is having good PO fluid intake. Superficial left foot wounds: - Likely 2/2 trench foot from poor foot hygiene and ill-fitting shoes. Tylenol for pain. - Pt remains afebrile - X-ray of L foot: mild degenerative change at 1st MTP. - Wound care is consulted and changing out dressings. Blisters have improved. Seen by wound care. Improved. - No abx needed at this time Thrombocytopenia & Leukopenia - Resolved. likely 2/2 to dilutional vs malnutrition H/o epilepsy: - Will resume home medications HTN: - BP: 120s/ 80s (improved) HR 62-75. HCTZ for BP control. Will continue to monitor HR and BPs. HLD: - Will resume home medications DISPO: discharge today. Dr. Shahid has accepted patient at [facility]. Mother is bringing final documents there today. CODE: FULL Diet: HH with suplena BID Case discussed with Dr. Love <Lea Moy - Last Filed: 12/10/17 09:18> Attending Addendum - Attending Addendum Date/Time: 12/10/17 4614 I personally evaluated the patient and discussed the management with Dr. Moy. I agree with the History, Examination, Assessment and Plan documented above with any addition or exceptions noted below. Patient continues with stable mentation and is medically stable for discharge. We are anticipating discharge to [facility] later today after family completes paperwork. <Luis Carlos Love - Last Filed: 12/10/17 12:49>
[2017-12-10 07:46] VITALS: BP 125/83; TEMP 97.4
[2017-12-10] MEDS: PARoxetine 20 MG TAB PO SCH (08:54)
[2017-12-10] MEDS: Magnesium Oxide 400 MG TAB PO SCH (08:55)
[2017-12-10] MEDS: Hydrochlorothiazide 25 MG TAB PO SCH (08:55)
[2017-12-10] MEDS: levETIRAcetam 500 MG TAB PO SCH (08:55)
[2017-12-10] MEDS: Folic Acid 1 MG TAB PO SCH (08:56)
[2017-12-10] MEDS: Donepezil HCl 5 MG TAB PO SCH (08:56)
[2017-12-10] MEDS: Multivitamin W/ Minerals 1 TAB PO SCH (08:56)
--- NOTE | 2017-12-11 11:13 | DIS-2 ---
DATE OF ADMISSION: 11/29/2017 DATE OF DISCHARGE: 12/10/2017 RESIDENT: Lea Moy MD ADMITTING ATTENDING: Laci Gonzales M.D. DISCHARGE ATTENDING: Luis Carlos Love MD CONSULTATIONS: Case management, physical therapy, wound care, and [facility]. PROCEDURES: 1. CT on 11/29/2017 showed no acute intracranial process. 2. Left foot x-ray on 11/29/2017 showed mild degenerative change at the first MTP joint. 3. Renal ultrasound on 11/29/2017 was unremarkable. PRIMARY DIAGNOSES: Acute psychosis secondary to alcohol abuse versus polysubstance abuse versus postictal seizure; acute kidney injury, resolved; injury to foot, superficial and improving. SECONDARY DIAGNOSES: 1. History of epilepsy. 2. Hyperlipidemia 3. Hypertension. DISCHARGE MEDICATIONS: 1. Multivitamin with minerals (Theragran 1 tab oral daily). 2. Gabapentin 600 mg oral at bedtime. 3. Levetiracetam (Keppra 1500 mg oral twice daily). 4. Metoprolol tartrate 25 mg oral daily. 5. Paroxetine HCL (Paxil 30 mg oral twice daily). DISCONTINUED MEDICATIONS: None. HISTORY OF PRESENT ILLNESS/HOSPITAL COURSE: This is a 47-year-old male, who presented to the ED after [place], who was in altered mental status. At that time, the patient was hallucinating, distractible, confused, and having tangential speech. He was not oriented. He did endorse having a seizure disorder, but cannot state what medications he was on and if he had taken them. The patient was given Haldol in the ED. His urine drug screen was positive for THC and opiates. He was also found to have an acute kidney injury, for which he was given fluids. In addition, a wound was found on his medial malleolus of the right foot and another ulcer wound on his right foot pad. X-ray showed no acute fracture or osteomyelitis. He was treated by wound care for these wounds. PT evaluated the patient and recommended rehabilitation. The patient' s vital signs remained within normal limits throughout the stay. His medications were started for his history of epilepsy, hypertension, and hyperlipidemia. His mental status improved throughout his stay, but most days he was alert and oriented to name and the date only. He remained confused as to his living situation before coming to the hospital and how he came to be at the hospital. During our discussions, the patient seemed to confabulate as his facts were not always true. [facility] was consulted, but he was denied for the service as they decided he was not immediately a threat to himself or others. We were able to contact the patient's mother, who stated that he has a history of using drugs and having psychotic episodes. She states that she and her want nothing to do with the patient and they would not be able to care for him as they are elderly and have health issues themselves. She was able to provide documentation so that the patient was able to be placed at a rehab facility. He was placed at [facility] and will be followed by Dr. Shahid. DISPOSITION: Stable. DISCHARGE INSTRUCTIONS: 1. Location: [facility] facility. 2. Heart healthy with Suplena b.i.d. 3. Activities: Ad karlos with fall precautions. 4. Followup: Will be with Dr. Shahid at [facility]. BERNARDO
== END 2017-12-10 12:01 | DRG 917 ==
LOC: ERS 04:41 → T4-B 06:39
PROVIDERS: ADMIT Family Medicine; ATTEND Family Medicine
DX: T50.901A Poisoning by unspecified drugs, medicaments and biological substances, accidental (unintentional), initial encounter (principal); G92 Toxic encephalopathy; N17.9 Acute kidney failure, unspecified; F19.151 Other psychoactive substance abuse with psychoactive substance-induced psychotic disorder with hallucinations; G40.909 Epilepsy, unspecified, not intractable, without status epilepticus; I10 Essential (primary) hypertension; E78.5 Hyperlipidemia, unspecified; G62.9 Polyneuropathy, unspecified; D69.59 Other secondary thrombocytopenia; D72.819 Decreased white blood cell count, unspecified; S90.822A Blister (nonthermal), left foot, initial encounter; S90.821A Blister (nonthermal), right foot, initial encounter; Z74.2 Need for assistance at home and no other household member able to render care; Z88.0 Allergy status to penicillin; Z79.82 Long term (current) use of aspirin; X58.XXXA Exposure to other specified factors, initial encounter; Y92.481 Parking lot as the place of occurrence of the external cause
CPT/HCPCS: 36415; 70450; 76770; 80048; 80053; 80164; 80177; 80306; 80307; 81001; 82140; 82550; 82570; 84300; 84443; 85025; 85652; 86780; 86803; 87389; 93005; 96361; 96374; G8978-GP-CJ; G8979-GP-CI; J1630; J1644; J1650; J3411; J3475; J7050; J7120